=== PATIENT | male | born 1940 | race Caucasian/White ===

== ENCOUNTER 2018-07-09 13:33 | Outpatient (REF) | payer BC, SELFPAY ==
[2018-07-09 19:35] LABS: HCT 43.2 % (40.0-50.0); HGB 14.5 g/dL (13.5-17.5); Mean Corp. HGB Concentration 33.6 g/dL (32.0-36.0); Mean Corpuscular Hemoglobin 31.5 pg (27.0-33.0); Mean Corpuscular Volume 93.9 fL (80-95); Mean Platelet Volume 9.9 fL (8.0-11.0); Platelet Count 204 x1000/uL (130-400); White Blood Cell Count 5.36 k/cumm (4.4-10.8)
[2018-07-09 19:52] LABS: ALT 25 U/L (12-78); AST 29 U/L (15-37); Albumin 3.9 g/dL (3.4-5.0); Alkaline Phosphatase 115 U/L (46-116); Bilirubin, Total 0.5 mg/dL (0.2-1.0); Total Protein 7.3 g/dL (6.4-8.2)
[2018-07-09 20:02] LABS: Bilirubin, Direct 0.14 mg/dL (0.00-0.20)
== END 2018-07-09 13:53 ==
LOC: NCHCN 13:33
PROVIDERS: PCP Family Medicine; Visit Provider Family Medicine
DX: R10.11 Right upper quadrant pain (principal)
CPT/HCPCS: 80076; 82172; 82247; 82977; 83010; 83883; 84460; 85027

== ENCOUNTER 2019-04-16 12:46 | Outpatient (CLI) | payer BC, SELFPAY ==
--- NOTE | 2019-04-16 11:15 | DI.RAD_ITS ---
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 COMPARISON: No exams were available for comparison FINDINGS: Three views were obtained. There are prominent endplate hypertrophic changes noted throughout the th oracic spine. There is mild wedging of the vertebral bodies anteriorly at multiple levels most promi nent at what appears to be T11. There is mild thoracic kyphosis. No focal acute compression fractur e seen. No gross erosive or destructive lesion seen. IMPRESSION: Mild thoracic kyphosis with marked degenerative endplate changes and mild anterior wedging of vertebr al bodies throughout the thoracic region. No acute fracture seen.
== END 2019-04-16 13:06 ==
PROVIDERS: PCP Family Medicine; Visit Provider Family Medicine
DX: M40.204 Unspecified kyphosis, thoracic region (principal); M47.814 Spondylosis without myelopathy or radiculopathy, thoracic region
CPT/HCPCS: 72072

== ENCOUNTER 2019-05-27 00:58 | Outpatient (CLI) | payer BC, SELFPAY ==
--- NOTE | 2019-05-27 17:16 | DI.DEXA_ITS ---
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 Findings for left hip scanning are T-score - 2.2 with left femoral neck T-score -2.5. Findings for lumbar spine scanning are T-score of -3.1. Fi ndings for left forearm scanning are T-score -2.8. 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 There appear to be anterior compr ession fractures of T12 and L1 vertebral bodies on lateral vertebral scanogram.
== END 2019-05-27 01:18 ==
PROVIDERS: PCP Family Medicine; Visit Provider Family Medicine
DX: M81.0 Age-related osteoporosis without current pathological fracture (principal); M48.55XD Collapsed vertebra, not elsewhere classified, thoracolumbar region, subsequent encounter for fracture with routine healing; M40.204 Unspecified kyphosis, thoracic region
CPT/HCPCS: 77080

== ENCOUNTER 2019-06-02 12:16 | Outpatient (REF) | payer BC, SELFPAY ==
[2019-06-02 17:57] LABS: HCT 42.3 % (40.0-50.0); HGB 13.9 g/dL (13.5-17.5); Mean Corp. HGB Concentration 32.9 g/dL (32.0-36.0); Mean Corpuscular Hemoglobin 31.1 pg (27.0-33.0); Mean Corpuscular Volume 94.6 fL (80-95); Mean Platelet Volume 9.7 fL (8.0-11.0); Platelet Count 218 x1000/uL (130-400); RBC 4.47 m/cumm (4.50-6.00); RBC Distribution Width 13.3 % (11.8-14.1); White Blood Cell Count 4.71 k/cumm (4.4-10.8)
[2019-06-02 19:52] LABS: ALT 23 U/L (16-63); AST 27 U/L (15-37); Albumin 3.8 g/dL (3.4-5.0); Alkaline Phosphatase 95 U/L (46-116); Anion Gap 7.2 mmol/L (3-11); BUN 16 mg/dL (7-18); Bilirubin, Total 0.3 mg/dL (0.2-1.0); CO2 28.8 mmol/L (21.0-32.0); CREATININE 0.72 mg/dL (0.70-1.30); Calcium 8.5 mg/dL (8.5-10.1); Chloride 105 mmol/L (98-107); Glucose 105 mg/dL (74-106); Sodium 141 mmol/L (136-145); TSH (W/Ref FT4) 1.77 uIU/mL (0.36-3.74)
[2019-06-04 07:03] LABS: Vitamin D 25 Total 40.6 ng/ml (30-100)
[2019-06-05 11:54] LABS: Parathyroid Hormone,Intact 77 pg/mL (19-88)
== END 2019-06-02 12:36 ==
LOC: NCHCN 12:16
PROVIDERS: PCP Family Medicine; Visit Provider Nurse Practitioner Family
DX: M81.0 Age-related osteoporosis without current pathological fracture (principal)
CPT/HCPCS: 80053; 82306; 85027; 83970; 84443

== ENCOUNTER 2020-02-24 04:19 | Outpatient (CLI) | payer MEDICARE, SELFPAY ==
[2020-03-09 09:52] LABS: Misc Referral (MAYO) See Comments
== END 2020-02-24 04:39 ==
PROVIDERS: PCP Family Medicine; Visit Provider Dermatology
DX: L12.0 Bullous pemphigoid (principal)
CPT/HCPCS: 36415; 83516

== ENCOUNTER → 2020-03-01 10:59 | Outpatient (BNVA) | payer MEDICARE, SELFPAY | PROVIDERS: PCP Family Medicine; Referring Provider Family Medicine; Visit Provider Surgery | DX: K62.6 Ulcer of anus and rectum (principal); R35.0 Frequency of micturition | CPT/HCPCS: 99203; 99214 ==

== ENCOUNTER 2020-03-16 07:10 | Day surgery (SDC) | payer MEDICARE, SELFPAY ==
[2020-03-16 07:15] VITALS: BP 128/69; PULSE 54; RESP 18; TEMP 36.7; O2SAT 95
[2020-03-16] MEDS: Lactated Ringers 1,000 ML 80 ML IV (08:05)
--- NOTE | 2020-03-16 08:40 | BOWEL_PTH ---
PATIENT: Aj Chamberlain LOC: [facility] U#:[id number] AGE/SX: 79/M ROOM: RE03/16/[address]: Marcelina Yeager : 1940 BED: DIS: 03/16/2020 SPEC #: [id number] RECD: 03/16/20 12:31 STATUS: PEYMAN HERNANDEZ #: [id number] HAL: 03/16/20 08:[address]: Marcelina Yeager DEPT: Surgical Specimen RECD BY: Dia Gutierrez ENTERED: 03/16/20 12:38 SP TYPE: Bowel OTHR DR: Jenny York Tissues: 1 - BIOPSY BOWEL 2 - BIOPSY BOWEL 3 - BIOPSY BOWEL 4 - BIOPSY BOWEL 5 - BIOPSY BOWEL 6 - BIOPSY BOWEL 7 - BIOPSY BOWEL 8 - BIOPSY BOWEL 9 - BIOPSY BOWEL 10 - BIOPSY BOWEL 11 - BIOPSY BOWEL 12 - BIOPSY BOWEL 13 - BIOPSY BOWEL Procedures: GROSS AND MICRO LEVEL 4 Comments: [id number]
--- NOTE | 2020-03-16 09:00 | COLE_ITS ---
Colonoscopy Report Date of procedure: 03/16/20 Pre-op diagnosis general: anal ulceration Post-op diagnosis procedure note: other (polyps ) Surgeon: Marcelina Yeager Anesthesia proc note operative: GETA Estimated blood loss (mL): 1 Pathology: other Complications: None Disposition: same day Prep: Miralax/Dulcolax Retraction Time: 20 mins Procedure Description: After informed consent was obtained the patient was taken to the procedure room and placed in a left decubitous position. Monitors were applied and a time out was done. The patients name, date of , procedure, allergies to medications and metal in their body was reviewed. The patient was then sedated. Once sedated and comfortable a rectal exam was done. External exam shows severe anal excoriation. It has a whitish plaque on it with surrounding edema erythema and maceration. This is been previously biopsied at [facility] [place]. Mucosa appears pink and normal. Cecum was achieved at 100 cm. Good prep was noted. The TI was intubated and biopsies taken. He has 2 small polyps. These are each less than 5 mm in size. These were both removed with cold biopsy forceps. 1 is in the cecum. 1 is at 80 cm. Biopsies are taken every 10 cm starting at the cecum. And then all the way from 90, 80, 70, 60, 50, 40, 30, and the rectum. All specimens are retrieved and no bleeding is noted. Internal exam revealed a normal sphincter tone and no palpable masses. The prostate nl. The scope was then introduced and retrofelexed. no internal hemorrhoids were identified. The scope was then advanced to the cecum w/out difficulty. The TI and appendiceal orifice were identified. The prep was good. The scope was then slowly retracted over 20 minutes back into the rectum. The scope was removed and the patient was woken up and taken back to Same day surgery in stable condition. The patient tolerated the procedure well and there were no immediate complications. Follow up: The patient should follow up in office. He does not need to have a repeat unless he develops changes in bowel habits or other new gastrointestinal complaints.
--- NOTE | 2020-03-16 09:04 | W.PM.DSUDISC ---
Discharge Plan Disposition Patient Disposition: HOME Condition: Good Discharge Details Reason For Visit: colon scope Attending Provider: Marcelina Yeager Primary Care Provider: Jenny York Home Meds and New Rx's Prescriptions: New silver sulfadiazine [Silvadene] 1 % cream 1 applic topical QID PRN PRNQty: 50 RF: 5 Continued fluticasone propionate [Flonase Allergy Relief] 50 mcg/actuation spray,suspension 2 spray VENKATESH DAILY RF: 0 nystatin 100,000 unit/gram powder 1 applic TP BID RF: 0 calcium carbonate [Calcium 500] 500 mg calcium (1,250 mg) tablet 500 mg PO DAILY RF: 0 fluconazole 150 mg tablet 150 mg PO DAILY RF: 0 clotrimazole-betamethasone 1-0.05 % cream 1 applic topical BID RF: 0 Prolia 60 mg/mL syringe 60 mg subcut [id number] RF: 0 prednisone 20 mg tablet See Rx Instructions .ROUTE .COMPLEX RF: 0 Discontinued bisacodyl [Dulcolax (bisacodyl)] 5 mg tablet,delayed release (DR/EC) 5 mg PO ONCE Qty: 4 RF: 0 polyethylene glycol 3350 17 gram powder in packet 255 g PO DAILY Qty: 15 RF: 0 Discharge Instructions Additional Instructions: Findings:x2 small polyps otherwise nl. No ASA/NSAID's for 2 wks silvadene cream prn comfort cont to use clotrimazole-betamethasone crem as previously prescribed May have some bleeding w/ first BM. Follow up: Toy in 2-3 wks Please call if you develop: fevers >101.5 Nausea or Vomiting Abdominal pain that is not transient DAY SURGERY UNIT POST COLONOSCOPY INSTRUCTIONS 1. Because there will be medication in your system for the next 24 hours, you may feel a little sleepy. Your coordination will be affected. Therefore: a. Do not drive or operate dangerous equipment for 24 hours. b. Do not drink alcohol beverages for 24 hours (not even beer). c. Plan to go home and rest for the day. 2. Generally there are no restrictions on your activity after a day or so has gone by, but you may feel a bit fatigued for a few days. 3 After you arrive home you may have a light meal and return to a normal diet as you can tolerate it without feeling sick to your stomach. 4. After surgery, you may feel pain or discomfort. This should be only transient, but if it persists please contact your doctor. 5. If there are any questions regarding the findings of your procedure, please feel free to contact your doctor. 6. If you are unable to contact your doctor with a problem, contact the hospital at [phone]. 7. Continue all your regular medications unless directed otherwise. I understand the above instructions and have no questions. Signature of Patient or Responsible Adult Escort Date/Time Name of Responsible Adult Escort Signature of Nurse Date/Time Activity:: He had no lifting over 20 pounds or strenuous activity x72 hours Diet:: small light meals x 24 hrs Discharge Orders Discharge Orders: Discharge Order (Routine); Ordered 03/16/20 Ordered By: Marcelina Yeager DS: Diagnosis Discharge Diagnosis (1) Anal ulcer: Status: Acute (2) Bullous pemphigoid: Status: Acute
[2020-03-16 09:30] VITALS: BP 126/77; PULSE 52; RESP 18; TEMP 36; O2SAT 99
== END 2020-03-16 10:10 | disposition home or self-care (01) ==
PROVIDERS: PCP Family Medicine; Visit Provider Surgery
PROC: 0DJD8ZZ Inspection of Lower Intestinal Tract, Via Natural or Artificial Opening Endoscopic (ICD-10-PCS; CPT 45378; principal; 2020-03-16 08:30)
DX: K62.6 Ulcer of anus and rectum (principal); K63.5 Polyp of colon; L12.0 Bullous pemphigoid
CPT/HCPCS: 45380; 88305; J2001

== ENCOUNTER 2020-03-31 02:15 | Outpatient (CLI) | payer MEDICARE, SELFPAY ==
--- NOTE | 2020-03-31 | DI.MRI_ITS ---
EXAM: MR BRAIN WO CLINICAL HISTORY: MILD MEMORY DISTURBANCE,R41.3,GAIT ABNL,R26.9,VISION CHANGES,H53.9. TECHNIQUE: Multiplanar multisequence MRI of the brain was performed. CONTRAST MATERIAL: Noncontrast COMPARISON: No exams were available for comparison FINDINGS: VENTRICLES AND EXTRA AXIAL SPACES: Normal in size and morphology for the patient's age. Gmmy-wq-hawk rate diffuse atrophy. HEMORRHAGE: None. CEREBRAL PARENCHYMA: Jqbc-yt-egcidtoz white matter changes consistent with microvascular disease. No focus of restricted diffusion to suggest acute infarct. No space-occupying lesion identified. MIDLINE SHIFT: None. BRAINSTEM/CEREBELLUM: Normal. VISUALIZED PARANASAL SINUSES/MASTOIDS: Mild ethmoid sinus mucosal thickening. The mastoid air cells are clear.. OTHER FINDINGS: The orbits and pituitary are unremarkable. The vascular flow voids are intact. IMPRESSION: Atrophy and white matter changes of small vessel disease. No acute abnormality. DATA REPOSITORY:
== END 2020-03-31 02:35 ==
PROVIDERS: PCP Family Medicine; Visit Provider Family Medicine
DX: R41.3 Other amnesia (principal); R26.89 Other abnormalities of gait and mobility; G31.89 Other specified degenerative diseases of nervous system
CPT/HCPCS: 70551

== ENCOUNTER → 2020-04-01 11:27 | Outpatient (BNVA) | payer MEDICARE, SELFPAY | PROVIDERS: PCP Family Medicine; Referring Provider Family Medicine; Visit Provider Surgery | DX: L12.0 Bullous pemphigoid (principal); K63.5 Polyp of colon; K62.6 Ulcer of anus and rectum | CPT/HCPCS: 99213 ==

== ENCOUNTER → 2020-05-12 08:57 | Outpatient (BNVA) | payer MEDICARE, SELFPAY | PROVIDERS: PCP Family Medicine; Referring Provider Family Medicine; Visit Provider Nurse Practitioner Adult Health | DX: R41.89 Other symptoms and signs involving cognitive functions and awareness (principal); R26.89 Other abnormalities of gait and mobility | CPT/HCPCS: 99204; 99215 ==

== ENCOUNTER 2020-05-13 19:20 | Outpatient (REF) | payer MEDICARE, SELFPAY ==
[2020-05-13 18:57] LABS: Vitamin B12 426 pg/mL (193-986)
== END 2020-05-13 19:40 ==
LOC: NCHCN 19:20
PROVIDERS: PCP Family Medicine; Visit Provider Family Medicine
DX: L12.0 Bullous pemphigoid (principal)
CPT/HCPCS: 82607

== ENCOUNTER 2020-05-26 22:42 | Outpatient (REF) | payer MEDICARE, SELFPAY ==
[2020-05-30 10:22] LABS: Hepatitis C Ab w Rflx HCV PCR Negative (Negative)
== END 2020-05-26 23:02 ==
LOC: NCHCN 22:42
PROVIDERS: PCP Family Medicine; Visit Provider Family Medicine
DX: Z11.59 Encounter for screening for other viral diseases (principal)
CPT/HCPCS: 86803

== ENCOUNTER → 2020-06-07 10:34 | Outpatient (BNVA) | payer MEDICARE, SELFPAY | PROVIDERS: PCP Family Medicine; Referring Provider Family Medicine; Visit Provider Nurse Practitioner Adult Health | DX: R41.89 Other symptoms and signs involving cognitive functions and awareness (principal); R26.9 Unspecified abnormalities of gait and mobility | CPT/HCPCS: 99354 ==

== ENCOUNTER → 2020-08-11 14:50 | Outpatient (BNVA) | payer MEDICARE, SELFPAY | PROVIDERS: PCP Family Medicine; Referring Provider Family Medicine; Visit Provider Psychiatry & Neurology Neurology | DX: F44.4 Conversion disorder with motor symptom or deficit (principal); R20.2 Paresthesia of skin; G62.9 Polyneuropathy, unspecified; M40.299 Other kyphosis, site unspecified | CPT/HCPCS: 99215 ==

== ENCOUNTER 2020-08-15 04:20 | Outpatient (CLI) | payer MEDICARE, SELFPAY ==
[2020-08-15 18:36] LABS: HCT 39.6 % (40.0-50.0); HGB 13.1 g/dL (13.5-17.5); MCH 31.3 pg (27.0-33.0); MCHC 33.1 % (32.0-36.0); MCV 94.5 fL (80-95); MPV 9.2 fL (8.0-11.0); Platelet Count 229 10^3/uL (130-400); RBC 4.19 10^6/uL (4.36-5.78); RDW 12.2 % (11.8-14.1); RDW-SD 42.5 fL; WBC 6.02 10^3/uL (4.4-10.8)
[2020-08-15 18:59] LABS: ALT 23 U/L (16-63); AST 25 U/L (15-37); Albumin 3.6 g/dL (3.4-5.0); Alkaline Phosphatase 66 U/L (46-116); Anion Gap 8.7 mmol/L (3-11); BUN 18 mg/dL (7-18); Bilirubin, Total 0.3 mg/dL (0.2-1.0); CO2 25.3 mmol/L (21.0-32.0); CREATININE 0.7 mg/dL (0.70-1.30); Calcium 8.3 mg/dL (8.5-10.1); Chloride 106 mmol/L (98-107); Glucose 117 mg/dL (74-106); Sodium 140 mmol/L (136-145); TSH (W/Ref FT4) 1.83 uIU/mL (0.36-3.74); Total Protein 6.9 g/dL (6.4-8.2)
[2020-08-17 09:48] LABS: Ferritin 118 ng/mL (26-388)
[2020-08-18 15:11] LABS: BP 180 <2 RU/mL (<20); BP 230 <2 RU/mL (<20)
== END 2020-08-15 04:21 | disposition home or self-care (01) ==
LOC: LBO 04:20
PROVIDERS: PCP Family Medicine; Visit Provider Dermatology
DX: R53.83 Other fatigue (principal); L12.0 Bullous pemphigoid
CPT/HCPCS: 36415; 80053; 83516; 85027; 82728; 84443

== ENCOUNTER → 2020-09-06 08:41 | Outpatient (BNVA) | payer MEDICARE, SELFPAY | PROVIDERS: PCP Family Medicine; Visit Provider Nurse Practitioner Adult Health | DX: R41.89 Other symptoms and signs involving cognitive functions and awareness (principal); F44.4 Conversion disorder with motor symptom or deficit; R20.2 Paresthesia of skin | CPT/HCPCS: 99214; 99215 ==

== ENCOUNTER → 2020-09-27 14:08 | Outpatient (BNVA) | payer MEDICARE, SELFPAY | PROVIDERS: PCP Family Medicine; Referring Provider Family Medicine; Visit Provider Nurse Practitioner Adult Health | DX: G56.03 Carpal tunnel syndrome, bilateral upper limbs (principal); G56.23 Lesion of ulnar nerve, bilateral upper limbs | CPT/HCPCS: 95912 ==

== ENCOUNTER 2020-11-08 02:55 | Outpatient (CLI) | payer MEDICARE, SELFPAY ==
[2020-11-08 10:19] LABS: Hemoglobin A1C 5.5 % (<5.7)
[2020-11-08 10:41] LABS: Vitamin B12 735 pg/mL (193-986)
== END 2020-11-08 02:56 | disposition home or self-care (01) ==
LOC: LBO 02:55
PROVIDERS: Nurse Practitioner Adult Health; PCP Family Medicine; Visit Provider Psychiatry & Neurology Neurology
DX: R73.09 Other abnormal glucose (principal); R41.3 Other amnesia; G62.9 Polyneuropathy, unspecified; G31.84 Mild cognitive impairment of uncertain or unknown etiology
CPT/HCPCS: 36415; 82607; 83036

== ENCOUNTER → 2020-11-14 13:59 | Outpatient (BNVA) | payer MEDICARE, SELFPAY | PROVIDERS: PCP Family Medicine; Referring Provider Family Medicine; Visit Provider Nurse Practitioner Adult Health | DX: G56.03 Carpal tunnel syndrome, bilateral upper limbs (principal); G56.23 Lesion of ulnar nerve, bilateral upper limbs; F44.4 Conversion disorder with motor symptom or deficit; R41.89 Other symptoms and signs involving cognitive functions and awareness | CPT/HCPCS: 99214; 99215; G2212 ==

== ENCOUNTER → 2021-02-27 09:28 | Outpatient (BNVA) | payer MEDICARE, SELFPAY | PROVIDERS: PCP Family Medicine; Referring Provider Family Medicine; Visit Provider Nurse Practitioner Adult Health | DX: F44.4 Conversion disorder with motor symptom or deficit (principal); G31.84 Mild cognitive impairment of uncertain or unknown etiology | CPT/HCPCS: 99213; 99215; G2212 ==

== ENCOUNTER 2021-03-01 12:10 | Outpatient (REF) | payer MEDICARE, SELFPAY ==
[2021-03-01 13:55] LABS: HCT 41.1 % (40.0-50.0); HGB 13.2 g/dL (13.5-17.5); MCH 30.3 pg (27.0-33.0); MCHC 32.1 % (32.0-36.0); MCV 94.3 fL (80-95); MPV 8.9 fL (8.0-11.0); Platelet Count 207 10^3/uL (130-400); RBC 4.36 10^6/uL (4.36-5.78); RDW 13.5 % (11.8-14.1); RDW-SD 46.5 fL; WBC 5.78 10^3/uL (4.4-10.8)
[2021-03-01 14:13] LABS: BUN 18 mg/dL (7-18); CREATININE 0.9 mg/dL (0.70-1.30); Calcium 8.6 mg/dL (8.5-10.1); Chloride 107 mmol/L (98-107); Glucose 107 mg/dL (74-106); Potassium 4.1 mmol/L (3.5-5.1); Sodium 142 mmol/L (136-145); TSH (W/Ref FT4) 1.52 uIU/mL (0.36-3.74)
[2021-03-02 11:30] LABS: Parathyroid Hormone,Intact 76 pg/mL (19-88)
== END 2021-03-01 12:11 | disposition home or self-care (01) ==
LOC: NCHCN 12:10
PROVIDERS: PCP Family Medicine; Visit Provider Family Medicine
DX: E83.51 Hypocalcemia (principal); D64.9 Anemia, unspecified; R00.2 Palpitations
CPT/HCPCS: 80048; 85027; 83970; 84443

== ENCOUNTER 2021-03-02 09:29 | Outpatient (CLI) | payer MEDICARE, SELFPAY ==
--- NOTE | 2021-03-28 11:08 | ZIOP_ITS ---
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 Sinus rate ranged from 46-96. Atrial flutter/fibrillation was present 44% of the time. Longest episode of atrial fibrillation lasted 3 days and 3 hours Average heart rate while in atrial fibrillation was 135 bpm. Minimum was 86, maximum 186 Average heart rate overall was 98. There was no high-grade AV block, no pauses greater than 3 seconds Patient symptoms of shortness of breath, tired or fatigued on one occasion corresponded to an isolated ventricular ectopic beat in the setting of sinus rhythm at 64.. Another occasion corresponded to atrial fibrillation rate 122.
== END 2021-03-02 09:30 | disposition home or self-care (01) ==
PROVIDERS: PCP Family Medicine; Visit Provider Family Medicine
DX: R00.2 Palpitations (principal)
CPT/HCPCS: 93246

== ENCOUNTER 2021-03-14 14:14 | Outpatient (CLI) | payer MEDICARE, SELFPAY ==
[2021-03-14 16:22] LABS: Anion Gap 5.4 mmol/L (3-11); BUN 30 mg/dL (7-18); CO2 30.6 mmol/L (21.0-32.0); Calcium 8.8 mg/dL (8.5-10.1); Chloride 108 mmol/L (98-107); Glucose 105 mg/dL (74-106); Potassium 4.4 mmol/L (3.5-5.1); Sodium 144 mmol/L (136-145)
== END 2021-03-14 14:15 | disposition home or self-care (01) ==
LOC: LBO 14:16
PROVIDERS: PCP Family Medicine; Visit Provider Internal Medicine Rheumatology
DX: M81.0 Age-related osteoporosis without current pathological fracture (principal)
CPT/HCPCS: 36415; 80048

== ENCOUNTER 2021-03-28 11:08 | Outpatient (CLI) | payer MEDICARE, SELFPAY | END 2021-03-28 11:09 | LOC: CARDO 03-29 15:51 | PROVIDERS: PCP Family Medicine; Referring Provider Family Medicine; Visit Provider Internal Medicine Cardiovascular Disease | DX: R00.2 Palpitations (principal); I48.91 Unspecified atrial fibrillation; I48.92 Unspecified atrial flutter; I49.3 Ventricular premature depolarization | CPT/HCPCS: 93248 ==

== ENCOUNTER 2021-03-29 01:13 | Outpatient (CLI) | payer MEDICARE, SELFPAY ==
--- NOTE | 2021-03-29 07:37 | DI.US_ITS ---
APPROVED REPORT EXAM: Comprehensive 2D, Doppler, and color-flow Echocardiogram Patient Location: Out-Patient [facility] Supervisor: Grace Gregory RDCS (AE) Indications: Atrial Fibrillation Other Information Study Quality: Adequate Conclusion Normal left ventricular wall thickness and chamber size. Estimated ejection fraction is 55 to 60%. There are no segmental wall motion abnormalities Normal right ventricular size and systolic function Both atria are mildly dilated The aortic valve is trileaflet with trace regurgitation Mildly thickened mitral leaflets with mild regurgitation Normal tricuspid valve with trace regurgitation. Normal estimated right ventricular systolic pressur e, 23 mmHg Dilated ascending aorta measuring 4 cm Wall motion Left Ventricle The left ventricle is normal size. The left ventricular systolic function is normal. The left ventric ular ejection fraction is within the normal range. There is normal left ventricular wall thickness. T here is normal LV segmental wall motion. There is no ventricular septal defect visualized. LVEF is 58 %. Right Ventricle The right ventricle is normal size. The right ventricular systolic function is normal. The RVSP is 23 .2 mmHg. Atria Left atrium is mildly dilated. Right atrium is mildly dilated. The interatrial septum is intact with no evidence for an atrial septal defect. Aortic Valve The aortic valve is normal in structure. There is no aortic valvular stenosis. Trace aortic regurgita tion. Mitral Valve Mitral valve leaflets are mildly thickened. No evidence of mitral valve stenosis. Mild mitral regurgi tation. Tricuspid Valve The tricuspid valve is normal in structure. There is no tricuspid valve stenosis. Trace tricuspid reg urgitation. Pulmonic Valve The pulmonary valve is normal in structure. There is no pulmonic valvular stenosis. There is no pulmo elaine valvular regurgitation. Great Vessels The aortic root is normal in size. The ascending aorta is moderately dilated.4.0 cm Aortic arch is no rmal in caliber. IVC is normal in size and collapses >50% with inspiration. IVC is normal in size and collapses >50% with inspiration. Pericardium There is no pericardial effusion. 2D Dimensions IVSD d PLAX 1.04 cm M: 0.6-1.2 LV Vol A2C d MOD 149.0 mL LVPW d PLAX 1.04 cm M: 0.6 - 1.2 LV Vol A4C d MOD 154.0 mL LVID d PLAX 4.93 cm M: 4.2 - 5.8 LA vol/ BSA A2C s A-L 49.9 mL/m2 LVDs 3.40 cm M: 2.5 - 4.0 LA vol/ BSA A4C s A-L 28.8 mL/m2 Ao Root d 3.67 cm M: 3.1 - 3.7 LA Vol/ BSA Biplane s A-L 39.6 mL/m2 RA Area A4C 19.56 cm2 LA Area A4C s MOD 19.80 cm2 RA Vol/ BSA A4C s A-L 30.9 mL/m2 LA Area A2C s MOD 27.21 cm2 Ao Asc Diam d 4.08 cm M: 2.6 - 3.4 LV EF A4C MOD 59.2 % LV EF Teichholz 58.1 % LV EF A2C MOD 58.9 % LVEF (Gibson's) 57.91 % M: 52 - 72 LV EF Biplane MOD 57.9 % LV Volume 115.13 mL M: 62 - 150 SV 88.80 mL LV Volume Index 57.85 mL/m2 M: 34 - 74 SV Index 44.55 mL/m2 LV Vol Biplane MOD 153.3 mL FS 30.70 % M-Mode TAPSE 2.92 cm (M/F) >1.7 LV Diastology MV E' medial 0.073 (>0.07 m/s) E/A Ratio 0.9 LV E/e MED 10.20 (<14) MV E Vmax 0.75 (0.4-1.3 m/s) MV E' lateral 0.088 (>0.1 m/s) MV A Vmax 0.80 (0.4-1.3 m/s) LV E/e LAT 8.50 (<14) MV E/A Ratio 0.92 MV E/E' medial 10.22 MV E/E' lateral 8.52 Aortic Valve LVOT Area 3.90 cm2 AoV Area Vmax 2.74 cm2 LVOT Vmax 0.89 m/s AoV Area/ BSA (Vmax) 1.38 cm2/m2 LVOT Mean Ba. 0.70 m/s AYDEE Mean Ba. 2.50 cm2 LVOT Peak Grad 3.2 mmHg AYDEE Mean Ba. Index 1.25 cm2/m2 LVOT Mean Grad 2.1 mmHg AR DT 2151 msec LVOT VTI 0.217 m AR PHT 624 msec LVOT Diam s 2.20 cm AoV Vmax 1.27 m/s Velocity Ratio 0.70 AoV Mean Ba. 1.09 m/s AoV Peak Grad 6.5 mmHg LVOT SV 84.63 mL AoV Mean Grad 4.8 mmHg AoV VTI 0.339 m AoV Area VTI 2.50 cm2 AoV Area/ BSA (VTI) 1.25 cm/m2 Mitral Valve MV DT 258 (160-240 msec) MR Vmax 5.23 m/s MV PHT 75 msec MR VTI 1.712 m MV Area PHT 2.95 cm2 MR Peak Grad 109.5 mmHg MV VTI 0.352 m MR Mean Grad 80.2 mmHg MV VTI Annulus 0.372 m MR PISA Radius 0.44 cm MV Area VTI 2.55 (4.0-6.0 cm2) MR EROA 0.08 cm2 MR Aliasing Velocity 0.35 m/s MR PISA 1.23 cm2 Pulmonary Valve PV Vmax 0.91 (0.5-1.5 m/s) RVOT Peak Gr. 1.74 mmHg PV Peak Grad 3.3 mmHg RVOT Mean Gr. 0.85 mmHg PV Mean Grad 1.7 mmHg RVOT VTI 0.136 m PV VTI 0.199 m RVOT Vmax 0.66 m/s Tricuspid Valve TR Peak Grad 20.2 mmHg TR Vmax 2.25 m/s RA Pressure 3.00 mmHg RVSP (TR) 23.2 mmHg
== END 2021-03-29 01:33 ==
PROVIDERS: PCP Family Medicine; Visit Provider Family Medicine
DX: I48.0 Paroxysmal atrial fibrillation (principal); I34.0 Nonrheumatic mitral (valve) insufficiency; I77.810 Thoracic aortic ectasia
CPT/HCPCS: 93306

== ENCOUNTER 2021-04-06 12:59 | Outpatient (CLI) | payer MEDICARE, SELFPAY ==
--- NOTE | 2021-04-06 13:00 | RT.EKG_ITS ---
APPROVED REPORT Exam: Resting ECG Reason for Exam: afib Patient Location: O HR:61 bpm ECG Measurements Heart Rate 61 AXIS NC 155 P 42 QRSd 98 QRS 17 QT 394 T 59 QTc 397 Conclusion Sinus rhythm...normal P axis, V-rate 50- 99 Multiform ventricular premature complexes...short R-R, variable morphology
== END 2021-04-06 13:00 | disposition home or self-care (01) ==
LOC: DI.CARD 13:01
PROVIDERS: PCP Family Medicine; Referring Provider Family Medicine; Visit Provider Internal Medicine Cardiovascular Disease
DX: I48.91 Unspecified atrial fibrillation (principal)
CPT/HCPCS: 93010

== ENCOUNTER → 2021-04-06 12:59 | Outpatient (BNVA) | payer MEDICARE, SELFPAY | PROVIDERS: PCP Family Medicine; Referring Provider Family Medicine; Visit Provider Internal Medicine Cardiovascular Disease | DX: I48.0 Paroxysmal atrial fibrillation (principal); Z79.01 Long term (current) use of anticoagulants | CPT/HCPCS: 93005; 99203; 99214 ==

== ENCOUNTER 2021-04-06 17:16 | Emergency (ER) | payer MEDICARE, SELFPAY ==
--- NOTE | 2021-04-06 17:15 | DI.CT_ITS ---
Exam(s) CT THORACIC SPINE WO EXAM: CT THORACIC SPINE WO CLINICAL HISTORY: pain TECHNIQUE: COMPARISON: No exams were available for comparison FINDINGS: CT examination of the thoracic spine was performed according to the usual protocol. There are degene rative changes consistent with the patient's age. Multi level minimal endplate compressions which ap pear chronic are noted. No evidence of acute fracture or dislocation. No gross thoracic disc hernia tion by CT criteria. No paraspinal mass or fluid collection. Visualized lungs are grossly clear. IMPRESSION: No evidence of acute thoracic spine injury. Her RADIATION DOSE DELIVERED: Total DLP CTDIvol RADIATION OPTIMIZATION: All CT scans at this facility use at least one of these dose optimization te chniques: automated exposure control; mA and/or kV adjustment per patient size (includes targeted exa ms where dose is matched to clinical indication); or iterative reconstruction.
--- NOTE | 2021-04-06 17:15 | DI.CT_ITS ---
Exam(s) CT HEAD CERVICAL SPINE WO EXAM: CT HEAD CERVICAL SPINE WO COMPARISON: No exams were available for comparison FINDINGS: CT examination of the cervical spine was performed without contrast administration. There is a nondisplaced fracture through the posterior elements of C6 vertebra extending through the lamina bilaterally and extending into the base of the spinous process. This has appearance consisten t with a stable injury. Intervertebral disc spaces are well maintained. Tracheolaryngeal structures appear intact. No cervical mass or adenopathy. Noncontrast cranial CT was performed. There is moderate generalized cerebral atrophy. No evidence of acute intracranial hemorrhage, mass effect, or midline shift. No calvarial fracture. The orbital and temporal bone structures appear intact. There is mild mucoperiosteal thickening of maxillary and ethmoid sinuses. Otherwise the visualized m astoid air cells and paranasal sinuses appear clear. IMPRESSION: Nondisplaced fracture of the lamina of C6 as described above. This has appearance consistent with st able injury and no additional fracture is seen. No evidence of acute intracranial injury. RADIATION DOSE DELIVERED: Total DLP Total DLP CTDIvol DATA REPOSITORY: All CT scans at this facility are submitted to the National Radiology Data Registry (NRDR) Dose Index Registry (DIR) with the [employer] ([employer]). RADIATION OPTIMIZATION: All CT scans at this facility use at least one of these dose optimization te chniques: automated exposure control; mA and/or kV adjustment per patient size (includes targeted exa ms where dose is matched to clinical indication); or iterative reconstruction.
[2021-04-06 17:18] VITALS: BP 140/75; PULSE 56; RESP 16; TEMP 36.3; O2SAT 99
--- NOTE | 2021-04-06 17:28 | W.ED.GENAD ---
Discharge Plan Disposition Patient Disposition: HOME Condition: Stable Discharge Details Clinical Impression: Fracture of C6 vertebra, closed, Blunt head trauma Primary Care Provider: Jenny York ED Provider: Jesse Chamberlain [place] Meds and New Rx's Prescriptions: Continued mecobalamin (vitamin B12) 1,000 mcg tablet,chewable 1,000 mcg PO DAILY RF: 0 nicotinamide 500 mg capsule PO TID RF: 0 tamsulosin [Flomax] 0.4 mg capsule 0.4 mg PO QHS Qty: 90 RF: 1 lutein 10 mg tablet 10 mg PO DAILY Qty: 90 RF: 0 doxycycline hyclate 100 mg capsule 100 mg PO BID Qty: 90 RF: 0 metoprolol succinate 25 mg tablet extended release 24 hr 50 mg PO DAILY RF: 0 fluticasone propionate [Allergy Relief (fluticasone)] 50 mcg/actuation spray,suspension 2 spray intranasal DAILY PRNRF: 0 Xarelto 20 mg tablet 20 mg PO DAILY RF: 0 Xarelto 20 mg tablet 20 mg PO DAILY RF: 0 Prolia 60 mg/mL syringe 60 mg subcut [id number] RF: 0 calcium carbonate [Calcium 500] 500 mg calcium (1,250 mg) tablet 1,000 mg PO DAILY RF: 0 Curcumin 95 % powder miscellaneous DAILY RF: 0 clotrimazole-betamethasone 1-0.05 % cream 1 applic topical BID RF: 0 Discharge Instructions Instructions: Head Injury (ED), Cervical Fracture (ED) Additional Instructions: You must wear the collar at all times. You may use Tylenol for pain if needed. [facility] spine clinic will contact you with follow up appointment to occur in 2 - 3 weeks. Return to ED if any neurological changes, worse pain, other concerns. Medical Decision Making <Jefry Espinoza MD - Last Filed: 04/06/21 19:34> 80 yo male with hx of afib on rivaroxaban who comes in with ems after a fall. He was in his garden which is on a hill and was planting garden when he fell to the side and felt a pop in his lower neck/upper midline back. Denies loc or preceding symptoms such as lightheadedness, chest pain or dyspnea. He has no headache, no chest or abdominal pain or pain in the extremities. He is caox4 in no distress. He has no chest or abdominal tenderness. No signs of trauma to the head, no focal motor or sensation deficits, CN II-XII intact. does have pain with palpation to the lower neck and upper midline back without palpable deformities. Suspect muscle strain but given his age will obtain ct cervical spine and thoracic spine and given he is on anticoagulation obtain ct head imaging shows c6 spinous process fx and bilateral lamina fracture, likely stable and remains neuro intact but will consult with spine at [facility]. pt signed out to oncoming provider pending spine consult. Differential Diagnosis Differential Diagnosis: muscle strain, fracture, dislocation Imaging Data Radiologic Study: Attestation: I personally reviewed and interpreted this imaging study as follows: Imaging: X-Ray Radiologist's impression: PROCEDURE INFORMATION: Exam: CT Thoracic Spine Without Contrast Exam date and time: 04/06/2021 5:28 PM Age: 80 years old Clinical indication: Other: Fall TECHNIQUE: Imaging protocol: Computed tomography images of the thoracic spine without contrast. COMPARISON: CR XR THORACIC SPINE COMPLETE 04/16/2019 11:13 AM FINDINGS: Vertebrae: No acute fracture. Normal alignment. Discs/Spinal canal/Neural foramina: Anterior ligamentous ossification and osteophytes noted. Interspinous ligament ossification noted at several levels. No significant disc protrusion. No severe spinal canal stenosis. No significant neural foraminal narrowing. Soft tissues: Unremarkable. IMPRESSION: Unremarkable thoracic spine. No evidence of thoracic spine fracture. Radiologic Study #2: Attestation: I personally reviewed and interpreted this imaging study as follows: Imaging: CT Scan Radiologist's impression: IMPRESSION: Nondisplaced fracture through the bilateral lamina and base of the spinous process of C6. The vertebral arch of C6 is intact, making this injury unlikely to be unstable. <Jesse Chamberlain MD - Last Filed: 04/06/21 23:55> Patient signed out to me pending discussion with ortho spine at [facility]. Received call back from ortho who had reviewed the scan. Agreed that fracture likely stable and could go home in [place] collar. However, they wanted upright AP and lateral films to assure normal alignment once patient in [place] collar. This was discussed with patient and his . Patient continues to be neurologically intact. Linwood collar place and patient able to stand without difficulty. X-ray obtained and read by [facility] as normal alignment. Patient instructed to wear [place] at all times. Ortho spine will contact patient with follow-up appointment to occur in 2 to 3 weeks. Patient encouraged to return to ED if any neurologic changes, worsening pain, or other concerns. HPI <Jefry Espinoza MD - Last Filed: 04/06/21 19:34> General Mode of arrival: EMS. Date/Time Provider Initiated Documentation: 04/06/21 17:18. Limitations to Documentation: no limitations. Information obtained by: patient. History of Present Illness 80 year old M presents to the emergency department with the chief complaint of neck pop feeling after fall, described as moderate, Patient started experiencing this hour(s) (1) and it has been constant. No relieving factors improve symptom(s), No exacerbating factors reported . Patient did receive the following treatments prior to arrival, none Related Data Home Medications Medication Instructions Recorded Confirmed denosumab 60 mg/mL subcutaneous 60 mg SUBCUT [id number] 02/26/20 04/06/21 syringe nicotinamide PO TID 05/12/20 03/02/21 mecobalamin (vitamin B12) 1,000 1,000 mcg PO DAILY 06/07/20 04/06/21 mcg chewable tablet calcium carbonate 500 mg calcium 1,000 mg PO DAILY tab 10/03/20 04/06/21 (1,250 mg) tablet clotrimazole-betamethasone 1 1 applic TOPICAL BID 10/03/20 04/06/21 %-0.05 % topical cream turmeric (bulk) 95 % powder pwd MISCELLANEOUS DAILY g 10/03/20 03/02/21 tamsulosin 0.4 mg capsule 0.4 mg PO QHS #90 cap 02/24/21 04/06/21 doxycycline hyclate 100 mg capsule 100 mg PO BID #90 cap 03/02/21 04/06/21 lutein 10 mg tablet 10 mg PO DAILY #90 tab 03/02/21 04/06/21 fluticasone propionate 50 2 spray INTRANASAL DAILY PRN 04/06/21 04/06/21 mcg/actuation nasal spray,suspension metoprolol succinate 25 mg 50 mg PO DAILY tab 04/06/21 04/06/21 tablet,extended release 24 hr rivaroxaban 20 mg tablet 20 mg PO DAILY 04/06/21 04/06/21 rivaroxaban 20 mg tablet 20 mg PO DAILY 04/06/21 04/06/21 Previous Rx's Medication Instructions Recorded tamsulosin 0.4 mg capsule 0.4 mg PO QHS #90 cap 02/24/21 doxycycline hyclate 100 mg capsule 100 mg PO BID #90 cap 03/02/21 lutein 10 mg tablet 10 mg PO DAILY #90 tab 03/02/21 Allergies Allergy/AdvReac Type Severity Reaction Status Date / Time cephalexin [Cephalexin] AdvReac Intermediate Diarrhea Verified 04/06/21 17:22 General Stated Complaint: Trauma LYN: 2 Review of Systems <Jefry Espinoza MD - Last Filed: 04/06/21 19:34> All systems reviewed & are unremarkable except as noted in HPI and below Constitutional Constitutional: Denies chills, Denies fever(s) and Denies weakness Cardiovascular Cardiovascular: Denies chest pain and Denies dyspnea Respiratory Respiratory: Denies cough and Denies dyspnea Gastrointestinal Gastrointestinal: Denies abdominal pain, Denies nausea and Denies vomiting Musculoskeletal Musculoskeletal: Denies joint swelling Neurologic Neurologic: Denies weakness PFSH <Jefry Espinoza MD - Last Filed: 04/06/21 19:34> Medical History (Updated 04/06/21 @ 21:36 by Jesse Chamberlain MD) Actinic keratosis Anemia Atrial fibrillation newly recognized February 2021 Bilateral carpal tunnel syndrome BPH associated with nocturia Bullous pemphigoid Candidal intertrigo Chronic anticoagulation apixaban as of February 2021 Chronic rhinitis Cognitive impairment Cubital tunnel syndrome, bilateral DNI (do not intubate) DNR (do not resuscitate) Erectile dysfunction Executive function deficit Gait abnormality Goals of care, counseling/discussion Health care proxy on file Shelia Chamberlain, his Hepatitis C Hypophonia Kyphosis Mild memory disturbance Nocturia Onychomycosis of toenail Osteoporosis Palliative care patient Paroxysmal atrial fibrillation POLST (Physician Orders for Life-Sustaining Treatment) Polyneuropathy Short-term memory loss 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 Son No problems noted. Sister No problems noted. 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 Pets and animals: Yes Pets and animals: cat(s) Do you think of yourself as: straight/heterosexual Current gender identity: male What is your relationship status?: How often do you talk on the phone with friends or family?: three or more times per week How often do you get together with friends or relatives?: twice per week How often do you attend congregation or christian services?: 4 or more times per year Do you belong to any clubs or organized social groups?: yes Panel score (0-1 are the most socially isolated patients): 4 What type of physical activity do you participate in: assisted ambulation and additional Details: gardening Duration: 30-45 minutes/day Frequency: 5-6 times per week Laurence/Nondenominational: Nguyen Special laurence needs: No Seatbelt use: always Working smoke detector in home: Yes Fire extinguisher in home: Yes Firearms in home: No Do you feel safe at home: Yes Do you feel safe in your relationship?: Yes Additional Social history: Chandu lives with his , Shelia, who is 19 years his marie. They have 2 sons, Donald and Jewel. Donald lives in [place] and Jewel lives in [place]. Chandu has always been physically active. 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 It is very difficult for him to walk on his own. Does much better with walker. Unclear cause of his cognitive decline. Brother also with dementia NOS. In his youth, Chandu worked extensively with DDT and other pesticides. 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 There he was exposed to pesticides, too. About to start work renovating their house so Chandu will have bedroom and bathroom on first floor. Exam <Jefry Espinoza MD - Last Filed: 04/06/21 19:34> Const General: no acute distress Orientation: alert [facility] Head: normal to inspection Ears: external ears normal General nose exam: external nose normal Mouth: moist mucous membranes Eyes General: appearance normal, both eyes and all related structures Neck Neck: no lymphadenopathy Chest Chest: no tenderness Resp Effort & Inspection: normal respiratory effort and able to speak in complete sentences Cardio Rate: regular rate GI Palpation: soft and nontender Skin General skin exam: no rashes or lesions noted Neuro General: patient alert and patient oriented x3 Extrem General: normal to inspection Psych Mental Status: mental status grossly normal Course <Jefry Espinoza MD - Last Filed: 04/06/21 19:34> Vital Signs Vital signs: Vital Signs Temperature 36.3 C L 04/06/21 17:18 Pulse 56 L 04/06/21 17:18 Respiratory Rate 16 04/06/21 17:18 Blood Pressure 140/75 04/06/21 17:18 Pulse Oximetry 99 04/06/21 17:18 Temperature 36.3 C L 04/06/21 17:18 Pulse 56 L 04/06/21 17:18 Respiratory Rate 16 04/06/21 17:18 Respiratory Effort 04/06/21 17:21 Blood Pressure 140/75 04/06/21 17:18 Blood Pressure Position Supine 04/06/21 17:18 Pulse Oximetry 99 04/06/21 17:18 Oxygen Delivery Method Room Air 04/06/21 17:18 Oxygen Flow Rate 0 04/06/21 17:18 Pain Level 2 04/06/21 17:18 Sign Out <Jefry Espinoza MD - Last Filed: 04/06/21 19:34> Sign Out Data: Sign Out Comment: fall, has likely stable c6 fracture, pending spine consult Last updated by Jefry Espinoza MD at 04/06/21 19:35
[2021-04-06 19:26] VITALS: BP 154/75; PULSE 60; RESP 18; O2SAT 98
--- NOTE | 2021-04-06 19:29 | DI.VRAD_ITS ---
PROCEDURE INFORMATION: Exam: CT Thoracic Spine Without Contrast Exam date and time: 04/06/2021 5:28 PM Age: 80 years old Clinical indication: Other: Fall TECHNIQUE: Imaging protocol: Computed tomography images of the thoracic spine without contrast. COMPARISON: CR XR THORACIC SPINE COMPLETE 04/16/2019 11:13 AM FINDINGS: Vertebrae: No acute fracture. Normal alignment. Discs/Spinal canal/Neural foramina: Anterior ligamentous ossification and osteophytes noted. Interspinous ligament ossification noted at several levels. No significant disc protrusion. No severe spinal canal stenosis. No significant neural foraminal narrowing. Soft tissues: Unremarkable. IMPRESSION: Unremarkable thoracic spine. No evidence of thoracic spine fracture. Dictated and Authenticated by: Jefry Rivera MD. Ordering:SERENE Capps MD
--- NOTE | 2021-04-06 19:31 | DI.VRAD_ITS ---
PROCEDURE INFORMATION: Exam: CT Head Without Contrast Exam date and time: 04/06/2021 5:28 PM Age: 80 years old Clinical indication: Patient HX: [place] crack in neck after fall TECHNIQUE: Imaging protocol: Computed tomography of the head without contrast. COMPARISON: MR BRAIN WO 03/31/2020 8:13 AM FINDINGS: Brain: There is moderate diffuse cerebral atrophy present, consistent with this patient's age. No midline shift, mass effect, intracranial hemorrhage or extra-axial fluid collection. Cerebral ventricles: No ventriculomegaly. Paranasal sinuses: Left maxillary sinus mucoperiosteal thickening most likely compatible with chronic sinusitis. Mastoid air cells: Visualized mastoid air cells are well aerated. Bones/joints: Unremarkable. No acute fracture. Soft tissues: Unremarkable. IMPRESSION: 1. No evidence of acute intracranial abnormality. 2. Left maxillary sinus mucoperiosteal thickening most likely compatible with chronic sinusitis. PROCEDURE INFORMATION: Exam: CT Cervical Spine Without Contrast Exam date and time: 04/06/2021 5:28 PM Age: 80 years old Clinical indication: Patient HX: [place] crack in neck after fall TECHNIQUE: Imaging protocol: Computed tomography images of the cervical spine without contrast. COMPARISON: MR BRAIN WO 03/31/2020 8:13 AM FINDINGS: Bones/joints: Nondisplaced fracture through the bilateral lamina and base of the spinous process of C6. The vertebral arch of C6 is intact, making this injury unlikely to be unstable. Normal alignment of the cervical spine. The vertebral body heights are preserved. Discs/Spinal canal/Neural foramina: No significant disc protrusion. No severe spinal canal stenosis. No significant neural foraminal narrowing. Lungs: Lung apices are normal. Soft tissues: Unremarkable. Other findings: No other osseous injury identified. IMPRESSION: Nondisplaced fracture through the bilateral lamina and base of the spinous process of C6. The vertebral arch of C6 is intact, making this injury unlikely to be unstable. Dictated and Authenticated by: Cristo Trujillo MD. Ordering:SERENE Capps MD
--- NOTE | 2021-04-06 20:45 | DI.RAD_ITS ---
Exam(s) XR CERVICAL SP THURSTON TRAUMA 2-3V EXAM: XR CERVICAL SP THUR[place]ON TRAUMA 2-3V CLINICAL HISTORY: c6 fracture, assess stability in aspen TECHNIQUE: COMPARISON: CT CT HEAD CERVICAL SPINE WO from 04/06/[address] THORACIC SPINE WO from 04/06/[address] THORACIC SPINE WO from 04/06/2021 FINDINGS: Two views were obtained. The C6 lamina fracture noted on CT is visible on the lateral view, there is mild displacement at this site. IMPRESSION: RADIATION DOSE DELIVERED: Total DLP
--- NOTE | 2021-04-06 21:02 | NUR.NOTE ---
Radiology called for repeat imaging.Nursing Note:
--- NOTE | 2021-04-06 21:11 | NUR.NOTE ---
To DI per wheelchair. Able to stand independently. Teaberry collar in place.Nursing Note:
[2021-04-06 21:22] VITALS: BP 145/75; PULSE 64
--- NOTE | 2021-04-06 21:28 | DI.VRAD_ITS ---
PROCEDURE INFORMATION: Exam: XR Cervical Spine Exam date and time: 04/06/2021 8:49 PM Age: 80 years old Clinical indication: Injury or trauma; Fall; Fracture, traumatic injury; Closed TECHNIQUE: Imaging protocol: XR of the cervical spine. Views: 2 or 3 views. COMPARISON: CT HEAD CERVICAL SPINE WO 04/06/2021 6:53 PM FINDINGS: Bones/joints: Fracture in the C6 posterior elements partially visualized with mild diastasis. Negative for anterior or posterior translation of vertebral bodies. Soft tissues: Unremarkable. Lungs: Lung apices are clear. Other findings: Cervical collar in place. C1 through C5 visible in lateral projection. IMPRESSION: 1. Fracture C6 posterior elements. 2. Normal alignment. Dictated and Authenticated by: Jefry Rivera MD. Ordering:ZAYDA Molina MD
--- NOTE | 2021-04-06 21:29 | NUR.NOTE ---
Ambulates to restroom with steady gait. Spouse accompanies. Denies pain. Repositioned in bed with HOB elevated,pillow provided. Lights dimmed for comfort. Call light in reach.Nursing Note:
== END 2021-04-06 21:53 | disposition home or self-care (01) ==
PROVIDERS: Emergency Provider Emergency Medicine; PCP Family Medicine
DX: S12.590A Other displaced fracture of sixth cervical vertebra, initial encounter for closed fracture (principal); M54.6 Pain in thoracic spine; S09.8XXA Other specified injuries of head, initial encounter; W17.89XA Other fall from one level to another, initial encounter
CPT/HCPCS: 93005; 99214; 99284; 70450; 72040; 72125; 72128; 99283

== ENCOUNTER 2021-06-22 02:13 | Outpatient (CLI) | payer MEDICARE, SELFPAY ==
--- NOTE | 2021-06-22 15:00 | DI.DEXA_ITS ---
Exam(s) XR DEXA BONE DENSITY W/WO FIORDALIZA EXAM: XR DEXA BONE DENSITY W/WO FIORDALIZA CLINICAL HISTORY: OSTEOPOROSIS WO CURRENT PATHOLOGICAL FX, M81.0 TECHNIQUE: WalkSource C densitometer COMPARISON: CR XR THORACIC SPINE COMPLETE from 04/16/2019 CR XR DEXA BONE DENSITY W/WO FIORDALIZA from 05/27/2019 CR,XR XR CERVICAL SP THURSTON TRAUMA 2-3V from 04/06/2021 FINDINGS: Lateral view of the thoracic and lumbar spine shows mild anterior wedging at the thoracolumbar juncti on. Similar to prior T spine plain films. Bone mineral density measurements of the lumbar spine correspond to a total T-score of -2.5, in the osteoporotic range. This represents an 8.2 percent increase when compared with previous exam. Bone mineral density measurements of the left hip correspond to a total T-score of -2.1. The femora l neck T-score is -2.3, in the osteopenic range. This represents a 4 percent increase when compared with the previous exam. The left forearm bone mineral density measurements correspond to a T-score of the distal 3rd of negat nacho 2.4. Total T-score is -3.0. This is a 2.8 percent increase when compared with 2019. . IMPRESSION: Mild lower thoracic compression fracture, stable. Osteopenia of the left hip and left forearm. Osteoporosis of the lumbar spine. There has been mild improvement in bone density when compared with 2019.
== END 2021-06-22 02:33 ==
PROVIDERS: PCP Family Medicine; Visit Provider Nurse Practitioner Family
DX: M80.88XA Other osteoporosis with current pathological fracture, vertebra(e), initial encounter for fracture (principal); M85.89 Other specified disorders of bone density and structure, multiple sites
CPT/HCPCS: 77080

== ENCOUNTER 2021-07-10 01:05 | Emergency (ER) | payer MEDICARE, SELFPAY ==
[2021-07-10] VITALS (23 sets, daily range): BP systolic 100–143; BP diastolic 71–101; PULSE 66–157; RESP 15–25; TEMP 36.3; O2SAT 96–99
--- NOTE | 2021-07-10 01:00 | RT.EKG_ITS ---
APPROVED REPORT Exam: Resting ECG Reason for Exam: irregular heart rate Patient Location: E HR:151 bpm ECG Measurements Heart Rate 151 AXIS NE 62 P 0 QRSd 94 QRS 9 QT 345 T 248 QTc 548 Conclusion Supraventricular tachycardia...V-rate>(220-age), QRSd<120 Ventricular premature complex...V complex w/ short R-R interval Repolarization abnormality, prob rate related...ST dep, T neg, tachycardia Physician: Rate 151, SVT, rate related depression in V4 V5 and V6. No ST elevation. No STEMI
--- NOTE | 2021-07-10 01:35 | ED.GENADUL_ITS ---
Discharge Plan Disposition Patient Disposition: HOME Condition: Good Discharge Details Clinical Impression: SVT (supraventricular tachycardia), A-fib Primary Care Provider: Jenny York ED Provider: William Sandhu Home Meds and New Rx's Prescriptions: Continued mecobalamin (vitamin B12) 1,000 mcg tablet,chewable 1,000 mcg PO DAILY RF: 0 tamsulosin [Flomax] 0.4 mg capsule 0.4 mg PO QHS Qty: 90 RF: 1 metoprolol succinate 25 mg tablet extended release 24 hr 12.5 mg PO DAILY RF: 0 fluticasone propionate [Allergy Relief (fluticasone)] 50 mcg/actuation spray,suspension 2 spray intranasal DAILY PRNRF: 0 Xarelto 20 mg tablet 20 mg PO DAILY RF: 0 Prolia 60 mg/mL syringe 60 mg subcut [id number] RF: 0 calcium carbonate [Calcium 500] 500 mg calcium (1,250 mg) tablet 1,000 mg PO DAILY RF: 0 Curcumin 95 % powder miscellaneous DAILY RF: 0 clotrimazole-betamethasone 1-0.05 % cream 1 applic topical BID RF: 0 Discharge Instructions Instructions: Supraventricular Tachycardia (ED) Additional Instructions: At this time your heart rate has notably improved. After our discussion together we have elected to go home. We are giving you a very small dose of metoprolol. Please take the 12.5 mg dose if your heart rate remains above 100. As we discussed we are holding off for now out of concern that it may cause. Bradycardia that you have had in the past. We will allow you to go home, sleep, and hopefully this will resolve the slight continued increased heart rate. Please follow-up very closely with Dr. Mario and Dr. Stauffer. Please return promptly if your heart rate jumps again. If you notice any worsening of your symptoms, or any new symptoms such as vomiting, diarrhea, fever, chills, shortness of breath, chest pain, numbness, weakness, or fainting , please return immediately to the emergency department for reevaluation. Please follow up with your primary care provider as soon as possible for reassessment and reevaluation. As always, it was a pleasure participating in your medical care today. Referrals: Jenny York MD [Primary Care Provider] - Medical Decision Making This is an 81-year-old male with a past medical history of tachybradycardia syndrome, paroxysmal A. fib, rivaroxaban anticoagulation use, who is DNR/DNI presents today for evaluation of palpitations. Over the last few weeks the patient was experiencing notably low heart rates in the 30s, and so he was transitioned off of his regular metoprolol. Unfortunately over the last few days he has developed a bit of tachycardia show intermittently occur into the rates in the 150s. He has a fast acting 20 mg oral metoprolol that he takes to help stop this. Tonight he had an elevation in his heart rate into the 150s, he took 20 mg of metoprolol at 9 PM, and unfortunately his heart rate remained elevated since then. He denies headache, syncope, chest pain or shortness of breath. He denies numbness tingling or weakness. No significant caffeine intake. No other complaints at this time. Physical exam is unremarkable. Heart rate at this time is in the 150s suspect A. fib with RVR based on the rhythm strip, however blood pressure stable. No indication for emergent cardioversion. I discussed the case with his , and she would be open to admission. We will start with IV metoprolol has his heart seems to often be responsive to this. We will gently rehydrate monitor closely and reassess. 2 AM IV metoprolol had no effect. EKG and rhythm strip now seems to demonstrate evidence of SVT rather than A. fib with RVR. Heart rate remains in the 140s to 150s. Modified Valsalva technique was attempted with no improvement or change. was brought to bedside. We had a long discussion about treatment. We discussed Cardizem, pacer pads, risks and benefits of temporary CPR if needed. With that long thorough discussion with the at bedside with the patient we weighed the risks and benefit of all of these different treatment modalities. Through shared decision-making process the and have decided that in this ossific scenario they would be okay with this acute intervention, as well as an episode of shocking or a brief episode of CPR if indicated. However they also made it abundantly clear that if there was a complication with the procedure which they fully understand, and the patient clinical status begins to rapidly decline, they would like all interventions to be halted, and they would like the patient's natural course to progress naturally without any additional interventions. 2:37 AM Patient was given an initial 6 mg of adenosine, no effect whatsoever. 12 mg were then given, and there was a minimal slight decrease in his rate for a few seconds and then resolved. The decision was made to then get a second IV that was not in his hand but rather proximally located in his arm. 12 mg was given at the second site, and the patient demonstrated a appropriate brief episode of bradycardia/asystole, and then transition back to a heart rate in the 90s to 110. Repeat EKG now demonstrates a flutter versus A. fib. With a much more copacetic rate. We will continue to monitor gently rehydrate and reassess. 3:15 AM Patient has remained with a stable heart rate of around 100-110. He does not feel any lightheadedness chest pain. He feels much better. We had a long discussion with the patient and his at bedside regarding next steps in management, including admission versus discharge and close outpatient follow-up. Taking into consideration the patient's wishes, there is life goals, and the fact that his notable heart rate has now been significantly improved, the patient has elected to go home and follow-up closely with Dr. Thomas and Dr. Mario. Family is a bit hesitant with taking any oral metoprolol secondary to his previous episodes of bradycardia, and so will hold off on any additional medications now, at their request. However we will give them a 12.5 mg pill/tablet to go home with, and if after resting and sleeping when he wakes up he still finds his heart rate to be elevated in the low 100s, then we will recommend taking the medication. Discussed red flags for which return. I have extensively reviewed the treatment plan and discharge instructions with the patient and their family. I have addressed all patient concerns at this time. The patient and family was made aware of what symptoms to monitor for that would warrant a return to the emergency department. Discussed the plan with the patient and family, they demonstrate verbal understanding and agreement with our assessment and plan at this time. The documentation in this chart was dictated using [employer] dictation software. Please excuse any dictation errors. EKG 1: 19 Rate 151, SVT, rate related depression in V4 V5 and V6. No ST elevation. No STEMI HPI General Date/Time Provider Initiated Documentation: 07/10/21 01:17 . HPI Narrative: This is an 81-year-old male with a past medical history of tachybradycardia syndrome, paroxysmal A. fib, rivaroxaban anticoagulation use, who is DNR/DNI presents today for evaluation of palpitations. Over the last few weeks the patient was experiencing notably low heart rates in the 30s, and so he was transitioned off of his regular metoprolol. Unfortunately over the last few days he has developed a bit of tachycardia show intermittently occur into the rates in the 150s. He has a fast acting 20 mg oral metoprolol that he takes to help stop this. Tonight he had an elevation in his heart rate into the 150s, he took 20 mg of metoprolol at 9 PM, and unfortunately his heart rate remained elevated since then. He denies headache, syncope, chest pain or shortness of breath. He denies numbness tingling or weakness. No significant caffeine intake. No other complaints at this time. Related Data Home Medications Medication Instructions Recorded Confirmed denosumab 60 mg/mL subcutaneous 60 mg SUBCUT [id number] 02/26/20 07/10/21 syringe mecobalamin (vitamin B12) 1,000 1,000 mcg PO DAILY 06/07/20 07/10/21 mcg chewable tablet calcium carbonate 500 mg calcium 1,000 mg PO DAILY tab 10/03/20 06/27/21 (1,250 mg) tablet clotrimazole-betamethasone 1 1 applic TOPICAL BID 10/03/20 07/10/21 %-0.05 % topical cream turmeric (bulk) 95 % powder pwd MISCELLANEOUS DAILY g 10/03/20 06/27/21 tamsulosin 0.4 mg capsule 0.4 mg PO QHS #90 cap 02/24/21 07/10/21 fluticasone propionate 50 2 spray INTRANASAL DAILY PRN 04/06/21 07/10/21 mcg/actuation nasal spray,suspension rivaroxaban 20 mg tablet 20 mg PO DAILY 04/06/21 07/10/21 metoprolol succinate 25 mg 12.5 mg PO DAILY tab 06/27/21 07/10/21 tablet,extended release 24 hr Previous Rx's Medication Instructions Recorded tamsulosin 0.4 mg capsule 0.4 mg PO QHS #90 cap 02/24/21 Allergies Allergy/AdvReac Type Severity Reaction Status Date / Time cephalexin [Cephalexin] AdvReac Intermediate Diarrhea Verified 07/10/21 01:31 General Stated Complaint: Palpitatns LYN: 2 Review of Systems All systems reviewed & are unremarkable except as noted in HPI and below PFSH All Active Problems (Updated 07/10/21 @ 03:21 by William Sandhu DO) SVT (supraventricular tachycardia) (Chronic) A-fib (Chronic) Atrial dilatation, bilateral (Chronic) mild per ECHO 2020 Lightheadedness (Acute) when bradycardic Clamminess (Acute) when bradycardic Movement disorder (Chronic) [facility] neurology evaluation Blunt head trauma (Acute) Fracture of C6 vertebra, closed (Acute) Paroxysmal atrial fibrillation (Acute) Chronic anticoagulation (Acute) apixaban as of February 2021 Atrial fibrillation (Chronic) newly recognized February 2021 BPH associated with nocturia (Acute) Walker as ambulation aid (Acute) Short-term memory loss (Acute) Executive function deficit (Acute) Health care proxy on file (Chronic) Shelia Chamberlain, his DNI (do not intubate) (Acute) DNR (do not resuscitate) (Acute) POLST (Physician Orders for Life-Sustaining Treatment) (Acute) History of carpal tunnel surgery of left wrist (Acute) Goals of care, counseling/discussion (Acute) Hypophonia (Acute) Palliative care patient (Acute) Fatigue (Acute) Cubital tunnel syndrome, bilateral (Acute) Bilateral carpal tunnel syndrome (Acute) Kyphosis (Acute) Peripheral neuropathy (Acute) Hand paresthesia (Acute) Camptocormia (Acute) Cognitive impairment (Chronic) Tubular adenoma (Acute ~03/2020) 2 tubular adenomas, repeat colo PRN (age) Dr. Samantha Yeager Bullous pemphigoid (Chronic) Medical History Actinic keratosis Anemia Candidal intertrigo Chronic rhinitis Erectile dysfunction Gait abnormality Hepatitis C Mild memory disturbance Nocturia Onychomycosis of toenail Osteoporosis Polyneuropathy Travel advice encounter around COVID-19, international travel Vision changes Family History Brother Advanced age brother 92 yo 2020 Dementia Brother , age 86 from unknown neuro disease Neurodegenerative disorder Son No problems noted. Son No problems noted. 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 Pets and animals: Yes Pets and animals: cat(s) Do you think of yourself as: straight/heterosexual Current gender identity: male What is your relationship status?: How often do you talk on the phone with friends or family?: three or more times per week How often do you get together with friends or relatives?: twice per week How often do you attend taoist or sikhism services?: 4 or more times per year Do you belong to any clubs or organized social groups?: yes Panel score (0-1 are the most socially isolated patients): 4 What type of physical activity do you participate in: assisted ambulation and additional Details: gardening Duration: 30-45 minutes/day Frequency: 5-6 times per week Laurence/Mormon: Nguyen Special laurence needs: No Seatbelt use: always Working smoke detector in home: Yes Fire extinguisher in home: Yes Firearms in home: No Do you feel safe at home: Yes Do you feel safe in your relationship?: Yes Additional Social history: Chandu lives with his , Shelia, who is 19 years his marie. They have 2 sons, Donald and Jewel. Donald lives in [place] and Jewel lives in [place]. Chandu has always been physically active. 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 It is very difficult for him to walk on his own. Does much better with walker. Unclear cause of his cognitive decline. Brother also with dementia NOS. In his youth, Chandu worked extensively with DDT and other pesticides. 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 There he was exposed to pesticides, too. About to start work renovating their house so Chandu will have bedroom and bathroom on first floor. Exam Narrative Exam Narrative: 1.Const: Well-nourished, Well-developed, appearing stated age 2.Eyes: PERRL, no conjunctival injection, and symmetrical lids. 3.ENT: Atraumatic external nose and ears. Moist MM. Neck: Symmetric, trachea midline, No thyromegaly. 4.CVS: +S1/S2, No murmurs or gallops. Peripheral pulses 2+ and equal in all extremities. Brisk capillary refill in all extremities. 5.RESP: Unlabored respiratory effort. Clear to auscultation bilaterally. No wheezes rales or rhonchi 6.GI: Soft, Nontender/Nondistended, No hepatosplenomegaly. No guarding or rebound. 7.MSK: Normocephalic/Atraumatic, Extremities w/o deformity or ttp No cyanosis or clubbing, Normal movement of all extremities 8.Skin: Warm, Dry. No rashes or lesions. 9.Neuro: ged instructor II-XII grossly intact. Sensation grossly intact, no focal neurologic deficits. 10.Psych: (AAO) x3. Appropriate mood and affect Course Vital Signs Vital signs: Vital Signs Temperature 36.3 C L 07/10/21 01:22 Pulse 153 H 07/10/21 01:22 Respiratory Rate 18 07/10/21 01:22 Blood Pressure 143/101 H 07/10/21 01:22 Pulse Oximetry 99 07/10/21 01:22 Temperature 36.3 C L 07/10/21 01:22 Temperature Source Skin 07/10/21 01:22 Pulse 153 H 07/10/21 01:22 Respiratory Rate 18 07/10/21 01:22 Blood Pressure 143/101 H 07/10/21 01:22 Pulse Oximetry 99 07/10/21 01:22 Critical Care Time Critical Care Time Critical Care Time: Yes Total Critical Care Time: 45 Attestation: Upon my evaluation, this patient had a high probability of imminent or life-threatening deterioration, which required my direct attention, intervention, and personal management. I have personally provided 45 minutes of critical care time exclusive of time spent on separately billable procedures. Time includes review of laboratory data, radiology results, discussion with consultants, and monitoring for potential decompensation. Interventions were performed as documented.
[2021-07-10 01:39] LABS: Abs Immature Grans 0.01 10^3/uL (0.0-0.06); Absolute Basophil Count 0.07 10^3/uL (0.0-0.2); Absolute Eosinophil Count 0.35 10^3/uL (0.0-0.7); Absolute Lymphocyte Count 1.48 10^3/uL (1.2-3.4); Absolute Monocyte Count 0.73 10^3/uL (0.1-0.8); Absolute Neutrophil Count 3.92 10^3/uL (1.2-6.7); Basophils % 1.1; Eosinophils % 5.3; HCT 44.9 % (40.0-50.0); HGB 14.8 g/dL (13.5-17.5); Immature Grans % 0.2; Lymphocytes % 22.6; MCV 93.9 fL (80-95); Monocytes % 11.1; Neutrophils % 59.7; Nucleated RBC 0 %; Platelet Count 185 10^3/uL (130-400); RBC 4.78 10^6/uL (4.36-5.78); RDW 12.6 % (11.8-14.1); RDW-SD 43.6 fL; WBC 6.56 10^3/uL (4.4-10.8)
[2021-07-10] MEDS: Normal Saline 500 ML IV (01:40)
[2021-07-10] MEDS: Metoprolol 5 MG/5 ML VIAL 2.5 MG IVP (01:40)
[2021-07-10 02:02] LABS: ALT 16 U/L (16-63); AST 19 U/L (15-37); Albumin 3.9 g/dL (3.4-5.0); Alkaline Phosphatase 56 U/L (46-116); Anion Gap 10.2 mmol/L (3-11); BUN 27 mg/dL (7-18); Bilirubin, Total 0.3 mg/dL (0.2-1.0); CO2 24.8 mmol/L (21.0-32.0); CREATININE 0.8 mg/dL (0.70-1.30); Calcium 8.6 mg/dL (8.5-10.1); Chloride 105 mmol/L (98-107); Glucose 111 mg/dL (74-106); NT-proBNP 2163 pg/mL (<300); Potassium 4.1 mmol/L (3.5-5.1); Sodium 140 mmol/L (136-145); TSH (W/Ref FT4) 4.88 uIU/mL (0.36-3.74); Total Protein 7.4 g/dL (6.4-8.2); Troponin I < 50 ng/L (<or=60)
[2021-07-10 02:20] LABS: FREE T4 1.02 ng/dL (0.76-1.46)
[2021-07-10] MEDS: Adenosine 6 MG/2 ML VIAL IVP (02:20)
[2021-07-10] MEDS: Adenosine 6 MG/2 ML VIAL ×2 (02:24→02:33)
--- NOTE | 2021-07-10 02:30 | RT.EKG_ITS ---
APPROVED REPORT Exam: Resting ECG Reason for Exam: rapid heart rate Patient Location: E HR:110 bpm ECG Measurements Heart Rate 110 AXIS WI [id number] P [id number] QRSd 96 QRS 7 QT 358 T 39 QTc 485 Conclusion Atrial fibrillation...V-rate 72-140, irreg A-activity Physician: afib vs aflutter, no significant st elevations or depressions
--- NOTE | 2021-07-10 03:22 | NUR.NOTE ---
Referral faxed to patient pcp Dr York to f/u in the next day or two for SVT. Nursing Note:
[2021-07-10] MEDS: Metoprolol 12.5 MG TAB PO (03:36)
== END 2021-07-10 03:45 | disposition home or self-care (01) ==
PROVIDERS: Emergency Provider Student in an Organized Health Care Education/Training Program; PCP Family Medicine
DX: I47.1 Supraventricular tachycardia (principal); I48.91 Unspecified atrial fibrillation
CPT/HCPCS: 80053; 93005; 96361; 96374; 96375; 96376; 99291; 83880; 84439; 84443; 84484; 85025; 93010; J0153; J3490

== ENCOUNTER → 2021-07-17 14:00 | Outpatient (BNVA) | payer MEDICARE, SELFPAY | PROVIDERS: PCP Family Medicine; Referring Provider Family Medicine; Visit Provider Nurse Practitioner Adult Health | DX: F44.4 Conversion disorder with motor symptom or deficit (principal); G31.84 Mild cognitive impairment of uncertain or unknown etiology | CPT/HCPCS: 99213; 99215 ==

== ENCOUNTER 2021-07-19 08:14 | Outpatient (CLI) | payer MEDICARE, SELFPAY ==
--- NOTE | 2021-07-19 08:00 | RT.EKG_ITS ---
APPROVED REPORT Exam: Resting ECG Reason for Exam: afib Patient Location: O HR:72 bpm ECG Measurements Heart Rate 72 AXIS MS 143 P 46 QRSd 102 QRS 42 QT 423 T 23 QTc 463 Conclusion Sinus rhythm...normal P axis, V-rate 50- 99 Ventricular bigeminy...bigeminy string>4 w/ V complexes Probable left atrial enlargement...P >50mS, <-0.10mV V1
== END 2021-07-19 08:15 | disposition home or self-care (01) ==
LOC: DI.CARD 08:15
PROVIDERS: PCP Family Medicine; Visit Provider Physician Assistant
DX: I47.1 Supraventricular tachycardia (principal); I48.91 Unspecified atrial fibrillation
CPT/HCPCS: 93005; 93010; 93246; 99215

== ENCOUNTER → 2021-07-19 12:51 | Outpatient (BNVA) | payer MEDICARE, SELFPAY | PROVIDERS: PCP Family Medicine; Referring Provider Family Medicine; Visit Provider Physician Assistant | DX: R69 Illness, unspecified (principal) ==

== ENCOUNTER 2021-07-19 14:54 | Outpatient (CLI) | payer MEDICARE, SELFPAY ==
--- NOTE | 2021-08-07 09:12 | W.CARDEVENT ---
Date of service: 08/07/21 Time of Service: 09:12 Cardiac Event Recorder Referring Provider:: Omid Camarillo Indications:: Paroxysmal atrial flutter and fibrillation Cardiac Event Note: This is a 14-day event monitor, ordered for paroxysmal atrial fibrillation and flutter Predominant rhythm was sinus, which was present 63% of the time. Minimum heart rate was 47. Average was 90, maximum in sinus rhythm was 109 There were occasional to frequent ventricular ectopic beats, including couplets bigeminy and trigeminy. A total of four episodes of nonsustained ventricular tachycardia were recorded, the longest of which was 5 beats in duration Atrial fibrillation was present 37% of the recording. The longest episode lasted 2 days and 5 hours. Patient symptoms of rapid heart rate corresponded to atrial fibrillation rates in the 140s. There were rare to occasional atrial premature beat and multiple self-limited atrial runs the longest of which lasted 11 beats in duration. These were distinct from atrial fibrillation There was no high-grade AV block, no pauses greater than 3 seconds
== END 2021-07-19 14:55 | disposition home or self-care (01) ==
PROVIDERS: PCP Family Medicine; Visit Provider Physician Assistant
DX: I48.0 Paroxysmal atrial fibrillation (principal); I47.1 Supraventricular tachycardia; I49.3 Ventricular premature depolarization; I48.92 Unspecified atrial flutter
CPT/HCPCS: 93005; 99215

== ENCOUNTER 2021-08-07 09:12 | Outpatient (CLI) | payer MEDICARE, SELFPAY | END 2021-08-07 09:13 | LOC: CARDO 09-13 14:48 | PROVIDERS: PCP Family Medicine; Referring Provider Physician Assistant; Visit Provider Internal Medicine Cardiovascular Disease | DX: I48.0 Paroxysmal atrial fibrillation (principal); I49.3 Ventricular premature depolarization | CPT/HCPCS: 93248 ==

== ENCOUNTER 2021-09-13 14:43 | Outpatient (CLI) | payer MEDICARE, SELFPAY | END 2021-09-13 14:44 | LOC: CARDO 14:44 | PROVIDERS: PCP Family Medicine; Referring Provider Physician Assistant; Visit Provider Internal Medicine Cardiovascular Disease | DX: R69 Illness, unspecified (principal) ==

== ENCOUNTER 2021-10-11 14:06 | Outpatient (CLI) | payer MEDICARE, SELFPAY ==
--- NOTE | 2021-10-11 14:00 | RT.EKG_ITS ---
APPROVED REPORT Exam: Resting ECG Reason for Exam: afib Patient Location: O HR:54 bpm ECG Measurements Heart Rate 54 AXIS WA 158 P 67 QRSd 104 QRS 10 QT 427 T 76 QTc 405 Conclusion Sinus rhythm...normal P axis, V-rate 50- 99 Probable left atrial enlargement...P >50mS, <-0.10mV V1 Borderline T abnormalities, lateral leads...T flat/neg, I aVL V5 V6
== END 2021-10-11 14:07 | disposition home or self-care (01) ==
LOC: DI.CARD 14:09
PROVIDERS: PCP Family Medicine; Referring Provider Family Medicine; Visit Provider Internal Medicine Cardiovascular Disease
DX: I48.91 Unspecified atrial fibrillation (principal)
CPT/HCPCS: 93010

== ENCOUNTER → 2021-10-11 14:06 | Outpatient (BNVA) | payer MEDICARE, SELFPAY | PROVIDERS: PCP Family Medicine; Referring Provider Family Medicine; Visit Provider Internal Medicine Cardiovascular Disease | DX: I48.92 Unspecified atrial flutter (principal); I48.91 Unspecified atrial fibrillation | CPT/HCPCS: 93005; 99214 ==

== ENCOUNTER 2021-11-13 04:12 | Outpatient (CLI) | payer MEDICARE, SELFPAY ==
[2021-11-13] MEDS: Albuterol HFA 18 GM 200 PUFF INH IH (15:43)
[2021-11-13] MEDS: Inhaler, Assist Device 1 EACH MC (15:43)
--- NOTE | 2021-11-14 11:16 | W.PFT ---
Date of service: 11/13/21 Time of Service: 15:06 Pulmonary Function Test Result Requesting Provider Orestes Godinez Indications: On amiodarone therapy - screening Interpretation Spirometry: There is no airflow limitation. There is no significant bronchodilator response. Lung Volumes: There are normal lung volumes Diffusion Capacity: There is a normal diffusion Airway Pressure: Normal airways resistance. Impression Normal PFT's Note: No prior PFT in system to compare Clinical Correlation therefore is recommended.
== END 2021-11-13 04:13 | disposition home or self-care (01) ==
PROVIDERS: PCP Family Medicine; Visit Provider Internal Medicine Cardiovascular Disease
DX: I48.91 Unspecified atrial fibrillation (principal); Z79.899 Other long term (current) drug therapy
CPT/HCPCS: 94060; 94726; 94729

== ENCOUNTER → 2021-12-12 12:35 | Outpatient (BNVA) | payer MEDICARE, SELFPAY | PROVIDERS: PCP Family Medicine; Referring Provider Family Medicine; Visit Provider Nurse Practitioner Adult Health | DX: R41.89 Other symptoms and signs involving cognitive functions and awareness (principal); G31.89 Other specified degenerative diseases of nervous system | CPT/HCPCS: 99214 ==

== ENCOUNTER → 2022-01-04 12:22 | Outpatient (BNVA) | payer MEDICARE, SELFPAY | PROVIDERS: PCP Family Medicine; Referring Provider Family Medicine; Visit Provider Psychiatry & Neurology Neurology | DX: R29.2 Abnormal reflex (principal); R29.898 Other symptoms and signs involving the musculoskeletal system; G31.9 Degenerative disease of nervous system, unspecified | CPT/HCPCS: 99214 ==

== ENCOUNTER → 2022-01-30 01:35 | Outpatient (CLI) | payer MEDICARE, SELFPAY ==
--- NOTE | 2022-01-30 06:45 | DI.MRI_ITS ---
Exam(s) MR THORACIC SPINE WO EXAM: MR THORACIC SPINE WO CLINICAL HISTORY: Bilateral Babinski with gait imbalance,R29.2. TECHNIQUE: Multiplanar multisequence MRI was performed. COMPARISON: CT CT THORACIC SPINE WO from 04/06/2021 FINDINGS: MR examination of the thoracic spine was performed according to the usual protocol. Note is made of mild anterior compression fractures of C7 and T4 vertebral bodies, these are mildly i ncreased in severity since prior CT examinations of March 2021. No significant retropulsion identi fied. Spinal canal appears well maintained at these levels. No evidence of central canal spinal stenosis or neural foraminal stenosis in the thoracic region. No focal disc herniation seen. Thoracic spinal cord shows normal signal and normal diameter throughout with unremarkable appearance of the conus medullaris. There are endplate and facet hypertrophic changes noted throughout the thoracic and upper lumbar immanuel on. IMPRESSION: Degenerative changes, mild increased loss of vertebral body height associated with mild anterior comp ression fractures at C7 and T4 since March 2021. No evidence of neural impingement. No spinal cord abnormality. DATA REPOSITORY:
--- NOTE | 2022-01-30 06:45 | DI.MRI_ITS ---
Exam(s) MR CERVICAL SPINE WO EXAM: MR CERVICAL SPINE WO CLINICAL HISTORY: bilateral Babinski - new gait imbalance,R29.2. TECHNIQUE: Multiplanar multisequence MRI was performed. COMPARISON: CR,XR XR CERVICAL SP THURSTON TRAUMA 2-3V from 04/06/[address] HEAD CERVICAL SPINE WO from 04/06/[address] THORACIC SPINE WO from 04/06/2021 FINDINGS: Cervical spine MRI was performed according to the usual protocol. No significant bony signal abnormality is seen. Note is made of a mild anterior compression fracture of the vertebral body of C7 which was not present on prior cervical spine CT of March 2021. No ad ditional bony lesion identified. There are mild disc bulges at C 3 4, C4-5, and C6-7. Minimal convex contour of C7 vertebral body not ed. The bony spinal canal is widely patent throughout with no central canal spinal stenosis. There may be mild narrowing of neural foramina bilaterally at C4-5 and C5-6. Otherwise neural foramina are fairly well maintained. Spinal cord shows normal diameter and normal signal throughout. Visualized posterior fossa structure s are unremarkable. IMPRESSION: New mild anterior compression fracture of C7 vertebral body. Please correlate with history of trauma . No evident neural impingement resulting from this deformity. DATA REPOSITORY:
== END ==
PROVIDERS: PCP Family Medicine; Visit Provider Psychiatry & Neurology Neurology
DX: R29.2 Abnormal reflex (principal); M48.52XA Collapsed vertebra, not elsewhere classified, cervical region, initial encounter for fracture; M48.54XA Collapsed vertebra, not elsewhere classified, thoracic region, initial encounter for fracture
CPT/HCPCS: 72141; 72146

== ENCOUNTER → 2022-02-21 10:56 | Outpatient (BNVA) | payer MEDICARE, SELFPAY | PROVIDERS: PCP Family Medicine; Referring Provider Family Medicine; Visit Provider Psychiatry & Neurology Neurology | DX: R29.2 Abnormal reflex (principal); R29.898 Other symptoms and signs involving the musculoskeletal system; G31.9 Degenerative disease of nervous system, unspecified | CPT/HCPCS: 99214 ==

== ENCOUNTER 2022-03-14 02:43 | Outpatient (CLI) | payer MEDICARE, SELFPAY ==
[2022-03-14 17:37] LABS: ALT 19 U/L (16-63); AST 17 U/L (15-37); Albumin 3.7 g/dL (3.4-5.0); Alkaline Phosphatase 69 U/L (46-116); Anion Gap 4.5 mmol/L (3-11); BUN 20 mg/dL (7-18); Bilirubin, Total 0.3 mg/dL (0.2-1.0); CO2 31.5 mmol/L (21.0-32.0); Calcium 8.5 mg/dL (8.5-10.1); Chloride 104 mmol/L (98-107); Estimated GFR 75.61 (mL/min/1.73m2); Glucose 111 mg/dL (74-106); Sodium 140 mmol/L (136-145); TSH (W/Ref FT4) 1.61 uIU/mL (0.36-3.74)
== END 2022-03-14 02:44 | disposition home or self-care (01) ==
LOC: LBO 02:43
PROVIDERS: PCP Family Medicine; Visit Provider Internal Medicine Cardiovascular Disease
DX: I48.91 Unspecified atrial fibrillation (principal); Z79.899 Other long term (current) drug therapy
CPT/HCPCS: 36415; 80053; 84443

== ENCOUNTER → 2022-03-26 14:42 | Outpatient (BNVA) | payer MEDICARE, SELFPAY | PROVIDERS: PCP Family Medicine; Referring Provider Family Medicine; Visit Provider Nurse Practitioner Adult Health | DX: G31.9 Degenerative disease of nervous system, unspecified (principal) | CPT/HCPCS: 99213 ==

== ENCOUNTER → 2022-04-06 11:01 | Outpatient (BNVA) | payer MEDICARE, SELFPAY | PROVIDERS: PCP Family Medicine; Referring Provider Family Medicine; Visit Provider Internal Medicine Cardiovascular Disease | DX: I48.92 Unspecified atrial flutter (principal); I48.0 Paroxysmal atrial fibrillation | CPT/HCPCS: 99213 ==

== ENCOUNTER → 2022-09-25 14:11 | Outpatient (BNVA) | payer MEDICARE, SELFPAY | PROVIDERS: PCP Family Medicine; Referring Provider Family Medicine; Visit Provider Nurse Practitioner Adult Health | DX: R41.89 Other symptoms and signs involving cognitive functions and awareness (principal); G31.9 Degenerative disease of nervous system, unspecified; G47.61 Periodic limb movement disorder | CPT/HCPCS: 99213 ==

== ENCOUNTER → 2023-01-17 10:07 | Outpatient (BNVA) | payer MEDICARE, SELFPAY | PROVIDERS: PCP Family Medicine; Referring Provider Family Medicine; Visit Provider Nurse Practitioner Adult Health | DX: R29.898 Other symptoms and signs involving the musculoskeletal system (principal); M24.551 Contracture, right hip | CPT/HCPCS: 99214 ==

== ENCOUNTER → 2023-02-26 02:40 | Outpatient (CLI) | payer MEDICARE, SELFPAY ==
--- NOTE | 2023-02-26 14:00 | DI.RAD_ITS ---
Exam(s) XR HIP RT COMPLETE AP PELVIS EXAM: XR HIP RT COMPLETE AP PELVIS CLINICAL HISTORY: RT HIP PAIN, M25.551. TECHNIQUE: 2D digital imaging was performed of the right hip. Three images were obtained. AP pelvis and lateral right hip views were obtained. COMPARISON: No exams were available for comparison FINDINGS: BONES: No acute fracture is present. No bony destructive lesion is seen. JOINTS: No dislocation present. There are marked degenerative changes seen in the right hip with loss of the superior joint space and osteophytes on the acetabulum and the femoral head. More mild degen erative changes are seen in the left hip. The sacroiliac joints show mild degenerative changes. The symphysis pubis is unremarkable. SOFT TISSUE: Atherosclerosis is present. IMPRESSION: Marked degenerative changes of the right hip. DATA REPOSITORY: RADIATION DOSE DELIVERED:
== END ==
PROVIDERS: PCP Family Medicine; Visit Provider Family Medicine
DX: M16.11 Unilateral primary osteoarthritis, right hip (principal)
CPT/HCPCS: 73502

== ENCOUNTER 2023-03-26 02:32 | Outpatient (CLI) | payer MEDICARE, SELFPAY ==
[2023-03-26 16:13] LABS: Anion Gap 7.4 mmol/L (3-11); BUN 26 mg/dL (7-18); CO2 26.6 mmol/L (21.0-32.0); CREATININE 1.1 mg/dL (0.70-1.30); Calcium 8.6 mg/dL (8.5-10.1); Chloride 107 mmol/L (98-107); Estimated GFR 67.02 (mL/min/1.73m2); Glucose 102 mg/dL (74-106); Potassium 4.3 mmol/L (3.5-5.1); Sodium 141 mmol/L (136-145)
== END 2023-03-26 02:33 | disposition home or self-care (01) ==
PROVIDERS: PCP Family Medicine; Visit Provider Nurse Practitioner Family
DX: M25.551 Pain in right hip (principal); M16.11 Unilateral primary osteoarthritis, right hip; Z79.899 Other long term (current) drug therapy; R26.89 Other abnormalities of gait and mobility
CPT/HCPCS: 36415; 80048

== ENCOUNTER → 2023-04-29 10:55 | Outpatient (BNVA) | payer MEDICARE, SELFPAY | PROVIDERS: PCP Family Medicine; Referring Provider Family Medicine; Visit Provider Student in an Organized Health Care Education/Training Program | DX: M16.11 Unilateral primary osteoarthritis, right hip (principal); M76.31 Iliotibial band syndrome, right leg | CPT/HCPCS: 99214 ==

== ENCOUNTER → 2023-06-24 08:21 | Outpatient (BNVA) | payer MEDICARE, SELFPAY | PROVIDERS: PCP Family Medicine; Referring Provider Family Medicine; Visit Provider Student in an Organized Health Care Education/Training Program | DX: M76.31 Iliotibial band syndrome, right leg (principal); M16.11 Unilateral primary osteoarthritis, right hip | CPT/HCPCS: 20611; J1040 ==

== ENCOUNTER 2023-07-12 11:33 | Outpatient (CLI) | payer MEDICARE, SELFPAY ==
--- NOTE | 2023-07-12 10:00 | DI.RAD_ITS ---
Exam(s) XR LUMBAR SPINE COMPLETE EXAM: XR LUMBAR SPINE COMPLETE CLINICAL HISTORY: right leg weakness. TECHNIQUE: 2D digital imaging was performed. COMPARISON: CR XR DEXA BONE DENSITY W/WO FIORDALIZA from 06/22/2021 FINDINGS: Five views. No evidence of acute fracture, listhesis, nor pars defects. Mild wedging of L1 vertebral body is unc hanged from DEXA scan preliminary review of June 2021. Disc spaces exhibit normal height. Anterior osteophytes at L3-4 level have increased in size from 2021. Advanced facet arthropathy noted at L5-S1 level and moderate facet arthropathy L4-5. No significant scoliosis. Sacroiliac joints appear unremarkable. IMPRESSION: Facet arthropathy as described above. No acute fractures. No disc space narrowing. No osseous lesions. DATA REPOSITORY: RADIATION DOSE DELIVERED:
== END 2023-07-12 11:34 | disposition home or self-care (01) ==
LOC: DIORS 11:33
PROVIDERS: PCP Family Medicine; Referring Provider Family Medicine; Visit Provider Student in an Organized Health Care Education/Training Program
DX: M76.31 Iliotibial band syndrome, right leg; M16.11 Unilateral primary osteoarthritis, right hip; M47.816 Spondylosis without myelopathy or radiculopathy, lumbar region
CPT/HCPCS: 99214; 72110

== ENCOUNTER 2023-07-24 11:14 | Emergency (ER) | payer MEDICARE, SELFPAY ==
[2023-07-24] VITALS (8 sets, daily range): BP systolic 121–128; BP diastolic 51–52; PULSE 53–59; RESP 13–21; TEMP 36.9; O2SAT 93–95
--- NOTE | 2023-07-24 11:00 | RT.EKG_ITS ---
APPROVED REPORT Exam: Resting ECG Reason for Exam: syncope Patient Location: E HR:54 bpm ECG Measurements Heart Rate 54 AXIS DC 179 P 29 QRSd 105 QRS -1 QT 436 T 89 QTc 414 Conclusion Sinus bradycardia...rate< 60 Nonspecific T abnormalities, lateral leads...T <-0.10mV, I aVL V5 V6
--- NOTE | 2023-07-24 11:30 | DI.RAD_ITS ---
Exam(s) XR CHEST 2V PA LATERAL EXAM: XR CHEST 2V PA LATERAL CLINICAL HISTORY: cough TECHNIQUE: 2D digital imaging was performed. COMPARISON: No exams were available for comparison FINDINGS: HEART: Normal size. Aorta: Not dilated. PULMONARY VASCULATURE: Normal. LUNGS: Clear. PLEURAL SPACE: No pleural effusion or pneumothorax. BONE:Unremarkable for age. Old left rib fracture. Soft tissues: Unremarkable. IMPRESSION: No acute abnormality. DATA REPOSITORY: RADIATION DOSE DELIVERED:
[2023-07-24 11:31] LABS: Abs Immature Grans 0.02 10^3/uL (0.0-0.06); Absolute Basophil Count 0.07 10^3/uL (0.0-0.2); Absolute Eosinophil Count 0.03 10^3/uL (0.0-0.7); Absolute Lymphocyte Count 0.37 10^3/uL (1.2-3.4); Absolute Monocyte Count 0.89 10^3/uL (0.1-0.8); Absolute Neutrophil Count 5.69 10^3/uL (1.2-6.7); Eosinophils % 0.4; HCT 42.1 % (40.0-50.0); HGB 13.9 g/dL (13.5-17.5); Immature Grans % 0.3; Lymphocytes % 5.2; MCH 30.8 pg (27.0-33.0); MCV 93 fL (80-95); MPV 8.6 fL (8.0-11.0); Monocytes % 12.6; Neutrophils % 80.5; Platelet Count 188 10^3/uL (130-400); RBC 4.52 10^6/uL (4.36-5.78); RDW 13.2 % (11.8-14.1); RDW-SD 45.8 fL; WBC 7.07 10^3/uL (4.4-10.8)
--- NOTE | 2023-07-24 11:32 | ED.GENADUL_ITS ---
HPI General Mode of arrival: EMS . Date/Time Provider Initiated Documentation: 07/24/23 11:16 . Limitations to Documentation: no limitations . Information obtained by: patient and family . History of Present Illness 83 year old M presents to the emergency department with the chief complaint of passed out, described as moderate, Patient started experiencing this hour(s) (1) and it has been now resolved. No relieving factors improve symptom(s), No exacerbating factors reported . Patient notes cough and fever/chills; denies chest pain. Patient did receive the following treatments prior to arrival, none Related Data Home Medications Medication Instructions Recorded Confirmed denosumab 60 mg/mL subcutaneous 60 mg subcut [id number] 02/26/20 07/24/23 syringe (Prolia) mecobalamin (vitamin B12) 1,000 1,000 mcg PO DAILY 06/07/20 07/24/23 mcg chewable tablet fluticasone propionate 50 2 spray intranasal DAILY PRN 04/06/21 07/24/23 mcg/actuation nasal spray,suspension (Allergy Relief (fluticasone)) rivaroxaban 20 mg tablet (Xarelto) 20 mg PO DAILY 04/06/21 07/24/23 cholecalciferol (vitamin D3) 50 50 mcg PO DAILY 07/17/21 07/24/23 mcg (2,000 unit) capsule clotrimazole-betamethasone 1 1 applic topical DAILY 07/17/21 07/24/23 %-0.05 % topical cream metoprolol tartrate 25 mg tablet 12.5 mg PO DAILY PRN 07/19/21 07/24/23 amiodarone 200 mg tablet 200 mg PO DAILY #90 tabs 08/08/21 07/24/23 calcium carbonate 200 mg calcium 200 mg PO TID #90 tabs 08/08/21 07/24/23 (500 mg) chewable tablet ([employer]([facility])) dupilumab 300 mg/2 mL subcutaneous 300 mg subcut Q2W 01/17/23 07/24/23 pen injector (Dupixent) meloxicam 7.5 mg tablet 7.5 mg PO DAILY 03/04/23 07/24/23 Previous Rx's Medication Instructions Recorded amiodarone 200 mg tablet 200 mg PO DAILY #90 tabs 08/08/21 calcium carbonate 200 mg calcium 200 mg PO TID #90 tabs 08/08/21 (500 mg) chewable tablet ([employer]) Allergies Allergy/AdvReac Type Severity Reaction Status Date / Time cephalexin [Cephalexin] AdvReac Intermediate Diarrhea Verified 07/24/23 12:00 General Stated Complaint: [id number] LYN: 3 Review of Systems All systems reviewed & are unremarkable except as noted in HPI and below Constitutional Constitutional: Denies chills and Denies fever(s) Cardiovascular Cardiovascular: Denies chest pain and Denies dyspnea Respiratory Respiratory: Denies dyspnea Gastrointestinal Gastrointestinal: Denies abdominal pain, Denies nausea and Denies vomiting Musculoskeletal Musculoskeletal: Denies joint swelling Exam Const General: no acute distress Orientation: alert HENMT Head: normal to inspection Ears: external ears normal General nose exam: external nose normal Mouth: moist mucous membranes Eyes General: appearance normal, both eyes and all related structures Neck Neck: normal visual inspection Resp Effort & Inspection: normal respiratory effort and able to speak in complete sentences Auscultation: clear to auscultation bilaterally Cardio Jugular venous pressure: no JVD Rate: regular rate Heart Sounds: no murmurs GI Palpation: soft and nontender Skin General skin exam: no rashes or lesions noted Neuro General: patient alert and patient oriented x3 Extrem General: normal to inspection Psych Mental Status: mental status grossly normal Course Vital Signs Vital signs: Vital Signs Pulse 54 L 07/24/23 11:17 Respiratory Rate 21 07/24/23 11:17 Blood Pressure 121/52 L 07/24/23 11:17 Pulse Oximetry 93 07/24/23 11:17 Temperature 36.9 C 07/24/23 11:24 Temperature Source Oral 07/24/23 11:24 Pulse 54 L 07/24/23 11:17 Respiratory Rate 21 07/24/23 11:24 Respiratory Effort Non-Labored 07/24/23 11:24 Respiratory Depth Normal 07/24/23 11:24 Respiratory Pattern Normal 07/24/23 11:24 Blood Pressure 121/52 L 07/24/23 11:17 Blood Pressure Position Supine 07/24/23 11:17 Pulse Oximetry 93 07/24/23 11:17 Oxygen Delivery Method Room Air 07/24/23 11:17 Oxygen Flow Rate 0 07/24/23 11:17 Pain Level 0 07/24/23 11:17 Lab/Test Results Lab/Test Results: 07/24/23 11:21 Blood Blood Culture - Pending 07/24/23 11:21 Blood Blood Culture - Pending Laboratory Tests Range/Units 07/24/23 11:21 WBC (4.4-10.8) 10^3/uL 7.07 RBC (4.36-5.78) 10^6/uL 4.52 Hgb (13.5-17.5) g/dL 13.9 Hct (40.0-50.0) % 42.1 MCV (80-95) fL 93 MCH (27.0-33.0) pg 30.8 MCHC (32.0-36.0) % 33.0 RDW (11.8-14.1) % 13.2 Plt Count (130-400) 10^3/uL 188 MPV (8.0-11.0) fL 8.6 Immature Gran % 0.3 Neutrophils % 80.5 Lymphocytes % 5.2 Monocytes % 12.6 Eosinophils % 0.4 Basophils % 1.0 Nucleated RBC % (0.0-0.3) % 0.0 Absolute Neutrophils (1.2-6.7) 10^3/uL 5.69 Absolute Lymphocytes (1.2-3.4) 10^3/uL 0.37 L Absolute Monocytes (0.1-0.8) 10^3/uL 0.89 H Absolute Eosinophils (0.0-0.7) 10^3/uL 0.03 Absolute Basophils (0.0-0.2) 10^3/uL 0.07 NT-Pro-B Natriuret Pep Cancelled Medical Decision Making 83-year-old male with a history of A-fib on anticoagulation, cognitive decline, who comes in after he had an episode where he passed out per his . The last day he had a cough and subjective fevers at home, today he is feeling generally weak and he was sitting in a chair today when his said he lost color in his face and passed out for few minutes. He is alert and oriented on arrival answering questions appropriately in no distress. He has no deficits on exam, on bedside ultrasound appears to have normal EF. No pericardial effusion. No leg swelling, no calf tenderness. Given his cough with reported subjective fevers at home we will proceed with CBC CMP procalcitonin Fluvid and chest x-ray and given he had a syncope as well will obtain EKG troponin and proBNP. He has no evidence of DVT on exam, no pleuritic chest pain and already is on anti coagulation so doubt PE. Patient's proBNP mildly elevated, no pulmonary edema on x-ray. He is COVID- positive. Negative procalcitonin. He is stable alert and overall well appearing. He is on amiodarone and Xarelto which interact with Paxlovid, he is vaccinated for COVID so do not feel stopping these medications for Paxlovid is indicated. Room air saturation is 96% so do not feel he needs to be hospitalized. He is stable for discharge, advised to follow-up with his primary care in a week if not better and return precautions given Differential Diagnosis Differential Diagnosis: COVID, flu, pneumonia Imaging Data Radiologic Study: Attestation: I personally reviewed and interpreted this imaging study as follows: Imaging: X-Ray Radiologist's impression: No acute findings Lab Data Lab results reviewed: Yes I reviewed the patient's lab results. ECG Data Attestation: I personally reviewed and interpreted this ECG (s) as follows: Prior ECG tracings: available for review Interpretation: Sinus bradycardia, rate of 54, [place] 179, no STEMI Quality:SDOH Health Related Social Needs: No Data to Display PFSH All Active Problems (Updated 07/24/23 @ 13:02 by Jefry Espinoza MD) Cough (Acute) Fatigue (Acute) COVID (Acute) Lumbar facet arthropathy (Acute) Iliotibial band syndrome, right leg (Acute) Arthritis of right hip (Chronic) 80 mg Depo-Medrol injection: 06/24/2023 Right hip flexor tightness (Acute) Periodic limb movement disorder (Acute) Advance care planning (Acute) Leg weakness, bilateral (Acute) Impaired instrumental activities of daily living (Acute) Right leg weakness (Acute) Babinski reflex (Acute) Neurodegenerative disorder (Acute) Dysphagia (Chronic) cannot swallow large pills All medications reviewed (Acute) On amiodarone therapy (Acute) Atrial flutter (Acute) PVC (premature ventricular contraction) (Acute) Atrial dilatation, bilateral (Chronic) mild per ECHO 2020 Lightheadedness (Acute) when bradycardic [place]amminess (Acute) when bradycardic Movement disorder (Chronic) [facility] neurology evaluation Fracture of C6 vertebra, closed (Acute) Blunt head trauma (Acute) Paroxysmal atrial fibrillation (Acute) new dx 2020 Chronic anticoagulation (Acute) apixaban as of February 2021 BPH associated with nocturia (Acute) Walker as ambulation aid (Acute) Short-term memory loss (Acute) Executive function deficit (Acute) Health care proxy on file (Chronic) Shelia Chamberlain, his DNI (do not intubate) (Acute) DNR (do not resuscitate) (Acute) POLST (Physician Orders for Life-Sustaining Treatment) (Acute) History of carpal tunnel surgery of left wrist (Acute) Goals of care, counseling/discussion (Acute) Hypophonia (Acute) Palliative care patient (Acute) Fatigue (Acute) Cubital tunnel syndrome, bilateral (Acute) Bilateral carpal tunnel syndrome (Acute) Peripheral neuropathy (Acute) Hand paresthesia (Acute) Camptocormia (Chronic) Cognitive impairment (Chronic) Tubular adenoma (Acute ~03/2020) 2 tubular adenomas, repeat colo PRN (age) Dr. Samantha Yeager Bullous pemphigoid (Chronic) Kyphosis (Acute) Medical History A-fib Erectile dysfunction Anemia Hepatitis C Atrial fibrillation newly recognized February 2021 Travel advice encounter around COVID-19, international travel Onychomycosis of toenail Vision changes Nocturia Chronic rhinitis Polyneuropathy Actinic keratosis Candidal intertrigo Gait abnormality Mild memory disturbance Osteoporosis Family History Brother Advanced age brother 92 yo 2020 Dementia Brother , age 86 from unknown neuro disease Neurodegenerative disorder Son No problems noted. Son No problems noted. 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 Pets and animals: Yes Pets and animals: cat(s) Do you think of yourself as: straight/heterosexual Current gender identity: male What is your relationship status?: How often do you talk on the phone with friends or family?: three or more times per week How often do you get together with friends or relatives?: twice per week How often do you attend jainism or protestant services?: 4 or more times per year Do you belong to any clubs or organized social groups?: yes Panel score (0-1 are the most socially isolated patients): 4 What type of physical activity do you participate in: assisted ambulation Duration: 30-45 minutes/day Frequency: 5-6 times per week Laurence/Rastafari: Nguyen Special laurence needs: No Seatbelt use: always Working smoke detector in home: Yes Fire extinguisher in home: Yes Firearms in home: No Do you feel safe at home: Yes Do you feel safe in your relationship?: Yes Additional Social history: Chandu lives with his , Shelia, who is 19 years his marie. They have 2 sons, Donald and Jewel. Donald lives in [place] and Jewel lives in [place]. Chandu has always been physically active. 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 It is very difficult for him to walk on his own. Does much better with walker. Unclear cause of his cognitive decline. Brother also had dementia and movement disorder NOS. He and Shelia recently renovated their house for Chandu to have a first floor bedroom and handicap access BR. Strong support in his medical decision making from , sons, sister in law and family friend, Yane Estrella RN. Shelia injured shoulder and required extensive surgery spring 2021. Sons recently visited sequentially to help. PAWSS Have you Been Recently Intoxicated or Drunk Within the Last 30 days?: No Have you Ever Experienced Previous Episodes of Alcohol Withdrawal?: No Have you ever Experienced Withdrawal Seizures?: No Have you ever Experienced Delirium Tremens(DT)s?: No Have you ever undergone Alcohol Rehabilitation Treatment (i.e, inpt ot outpatient treatment programs)?: No Have you ever Experienced Blackouts?: No Have you ever Combined Alcohol with other Downers within the last 90 days?: No Have you ever Combined Alcohol with any other Substance of Abuse during the last 90 days?: No Positive Blood Alcohol level on Presentation? [PCS.BAL]: No Evidence of Increased Autonomic Activity (i.e. HR>120, tremor, sweating, agitation, nausea)?: No Result: 0 Discharge Plan Disposition Patient Disposition: Home Condition: Stable Discharge Details Clinical Impression: COVID, Fatigue, Cough Primary Care Provider: Jenny York ED Provider: Jefry Espinoza Home Meds and New Rx's Prescriptions: Continued mecobalamin (vitamin B12) 1,000 mcg tablet,chewable 1,000 mcg PO DAILY cholecalciferol (vitamin D3) 50 mcg (2,000 unit) capsule 50 mcg PO DAILY calcium carbonate [[employer]] 200 mg calcium (500 mg) tablet,chewable 200 mg PO TID Qty: 90 0RF amiodarone 200 mg tablet 200 mg PO DAILY Qty: 90 3RF meloxicam 7.5 mg tablet 7.5 mg PO DAILY fluticasone propionate [Allergy Relief (fluticasone)] 50 mcg/actuation spray,suspension 2 spray intranasal DAILY PRN Rx Instructions: administer into each nostril Xarelto 20 mg tablet 20 mg PO DAILY Rx Instructions: must administer with evening meal metoprolol tartrate 25 mg tablet 12.5 mg PO DAILY PRN Dupixent Pen 300 mg/2 mL pen injector 300 mg subcut Q2W Prolia 60 mg/mL syringe 60 mg subcut [id number] clotrimazole-betamethasone 1-0.05 % cream 1 applic topical DAILY Discharge Instructions Instructions: COVID-19 (Coronavirus Disease 2019) (ED) Additional Instructions: You are positive for COVID. Due to interactions with your medications Paxlovid is not being started If not better within a week follow-up with your primary care provider If you feel more ill, have difficulty breathing, or start having persistent vomiting return to the emergency department
[2023-07-24 11:43] LABS: PTT Activated 33.9 sec (23.6-32.8); Prothrombin Time 13.2 sec (9.1-11.1)
[2023-07-24 11:44] LABS: INR 1.3 (0.9-1.1)
[2023-07-24 11:55] LABS: ALT 21 U/L (16-63); AST 25 U/L (15-37); Albumin 3.9 g/dL (3.4-5.0); Alkaline Phosphatase 88 U/L (46-116); Anion Gap 11.2 mmol/L (3-11); BUN 25 mg/dL (7-18); Bilirubin, Total 0.5 mg/dL (0.2-1.0); CO2 26.8 mmol/L (21.0-32.0); CREATININE 1.1 mg/dL (0.70-1.30); Calcium 8.8 mg/dL (8.5-10.1); Chloride 103 mmol/L (98-107); Estimated GFR 66.61 (mL/min/1.73m2); Glucose 150 mg/dL (74-106); Magnesium 2.2 mg/dL (1.8-2.4); NT-proBNP 918 pg/mL (<300); Sodium 141 mmol/L (136-145); TSH (W/Ref FT4) 2.21 uIU/mL (0.36-3.74); Total Protein 7.7 g/dL (6.4-8.2); Troponin I < 50 ng/L (< or =60)
[2023-07-24 12:06] LABS: Procalcitonin < 0.1 ng/mL
[2023-07-24 12:17] LABS: Influenza A PCR Negative (Negative); Influenza B PCR Negative (Negative); RSV PCR Negative (Negative)
[2023-07-24 12:21] LABS: Source Nasopharynx
[2023-07-24 12:22] LABS: COVID-19 PCR Positive (Negative)
== END 2023-07-24 13:40 | disposition home or self-care (01) ==
PROVIDERS: Emergency Provider Emergency Medicine; PCP Family Medicine
DX: U07.1 COVID-19 (principal); R53.81 Other malaise; R05.9 Cough, unspecified; I48.91 Unspecified atrial fibrillation; Z79.01 Long term (current) use of anticoagulants; Z11.52 Encounter for screening for COVID-19
CPT/HCPCS: 36415; 80053; 84145; 87040; 87637; 93005; 99285; 71046; 83735; 83880; 84443; 84484; 85025; 85610; 85730; 93010; 99284

== ENCOUNTER → 2023-08-07 01:23 | Outpatient (CLI) | payer MEDICARE, SELFPAY ==
--- NOTE | 2023-08-07 07:00 | DI.MRI_ITS ---
Exam(s) MR LUMBAR SPINE WO EXAM: MR LUMBAR SPINE WO CLINICAL HISTORY: bilat leg weakness,lumbar facet arthropathy,m47.816,[id number]. TECHNIQUE: Multiplanar multisequence MRI of the Lumbar spine was performed. COMPARISON: CR XR LUMBAR SPINE COMPLETE from 07/12/2023 FINDINGS: Bones: The last intervertebral disc space is designated the L5/S1 level for the numbering purpose of this examination. There is an old anterior wedging deformity of the T12 vertebral body. Small endp late osteophytes are seen at multiple levels of the lumbar spine. Alignment is satisfactory. The sig nal characteristics are unremarkable. Cord: The conus tip ends at the L1 level. It is of normal size and signal intensity. T12-L1: No disc herniations or bulges are present. No central spinal canal or neural foraminal stenos is. L1-2: There is a mild diffuse disc bulge. No central spinal canal or neural foraminal stenosis. L2-3: No disc herniations or bulges are present. No central spinal canal or neural foraminal stenosis . L3-4: There is a diffuse disc bulge. There are mild degenerative changes of the facets. There is mi ld narrowing of the central spinal canal which results. There is [id number] bilateral neural f oraminal stenosis. L4-5: There is a diffuse disc bulge. There are hypertrophic changes of the facets and ligamentum fla vum. The findings result in [id number] central spinal canal stenosis. There is moderate bilat eral neural foraminal stenosis. L5-S1: No disc herniations or bulges are present. There are degenerative changes of the facets. No s ignificant central spinal canal stenosis is present. There is [id number] bilateral neural fora cecilia stenosis. Soft tissues: The paraspinal soft tissues are unremarkable. IMPRESSION: Multilevel degenerative changes in the lumbar spine. The findings are most marked at L4-L5 where the re is [id number] central spinal canal stenosis and moderate bilateral neural foraminal stenosis . Please see the above discussion for complete details. DATA REPOSITORY:
== END ==
PROVIDERS: PCP Family Medicine; Visit Provider Student in an Organized Health Care Education/Training Program
DX: R29.898 Other symptoms and signs involving the musculoskeletal system (principal); M47.816 Spondylosis without myelopathy or radiculopathy, lumbar region
CPT/HCPCS: 72148

== ENCOUNTER 2023-09-10 04:51 | Outpatient (CLI) | payer MEDICARE, SELFPAY ==
[2023-09-10 16:21] LABS: BUN 33 mg/dL (7-18); CREATININE 1.1 mg/dL (0.70-1.30); Calcium 8.6 mg/dL (8.5-10.1); Chloride 108 mmol/L (98-107); Estimated GFR 66.61 (mL/min/1.73m2); Glucose 138 mg/dL (74-106); Sodium 144 mmol/L (136-145)
== END 2023-09-10 04:52 | disposition home or self-care (01) ==
PROVIDERS: PCP Family Medicine; Visit Provider Internal Medicine Rheumatology
DX: M81.0 Age-related osteoporosis without current pathological fracture (principal); Z79.899 Other long term (current) drug therapy
CPT/HCPCS: 36415; 80048

== ENCOUNTER → 2023-09-12 10:09 | Outpatient (BNVA) | payer MEDICARE, SELFPAY | PROVIDERS: PCP Family Medicine; Referring Provider Family Medicine; Visit Provider Nurse Practitioner Adult Health | DX: R41.89 Other symptoms and signs involving cognitive functions and awareness (principal) | CPT/HCPCS: 99215 ==

== ENCOUNTER 2023-11-08 07:30 | Day surgery (SDC) | payer MEDICARE, SELFPAY ==
[2023-11-08 07:30] VITALS: BP 159/76; PULSE 48; RESP 15; TEMP 36.1; O2SAT 96
--- NOTE | 2023-11-08 08:13 | W.ANESPRE ---
General Info Date of Service Date Performed: 11/08/23 Height: 6 ft Weight: 79.379 kg Body Mass Index (BMI): 23.7 Surgical Procedure: Operation Date: 11/08/23 09:40 Proposed Procedure Side Surgeon p Cataract Extraction with IOL Implant Left Fernando Mendoza MD Meds Allergies and Home Medications Allergies Allergy/AdvReac Type Severity Reaction Status Date / Time cephalexin [Cephalexin] AdvReac Intermediate Diarrhea Verified 11/08/23 07:56 Home Medication Medication Instructions Recorded denosumab 60 mg/mL subcutaneous 60 mg subcut [id number] 02/26/20 syringe (Prolia) mecobalamin (vitamin B12) 1,000 1,000 mcg PO DAILY 06/07/20 mcg chewable tablet fluticasone propionate 50 2 spray intranasal DAILY PRN 04/06/21 mcg/actuation nasal spray,suspension (Allergy Relief (fluticasone)) rivaroxaban 20 mg tablet (Xarelto) 20 mg PO HS 04/06/21 cholecalciferol (vitamin D3) 50 50 mcg PO DAILY 07/17/21 mcg (2,000 unit) capsule metoprolol tartrate 25 mg tablet 12.5 mg PO DAILY PRN 07/19/21 amiodarone 200 mg tablet 200 mg PO DAILY #90 tabs 08/08/21 calcium carbonate (Tums Freshers) 200 mg PO TID #90 tabs 08/08/21 dupilumab 300 mg/2 mL subcutaneous 300 mg subcut Q2W 01/17/23 pen injector (Dupixent) meloxicam 7.5 mg tablet 7.5 mg PO HS 03/04/23 memantine 5 mg tablet 5 mg PO .COMPLEX #120 tabs 09/12/23 Current Visit Medications: Current Medications Generic Name Dose Route Start Last Admin Trade Name Freq PRN Reason Stop Dose Admin Acetaminophen 1,000 mg 11/08/23 06:00 Acetaminophen 500 Mg Tab PO 12/08/23 05:59 Q4H PRN PRN Balanced Salt Solution 500 ml 11/08/23 06:00 Balanced Salt Soln.-Plus 500 Ml Bag OP 12/08/23 05:59 DIRECTED [facility] Miscellaneous Medication 0 ml 11/08/23 06:00 Prednisolone 1%, Moxifloxacin 0.5%, Bromfenac 0.09% 5ml Btl OS 12/08/23 05:59 DIRECTED [facility] Miscellaneous Medication 0 ml 11/08/23 06:00 11/08/23 08:10 Tropicam./Phenyleph. (1/2.5%) 10 Ml Btl OS 12/08/23 05:59 1 drp DIRECTED [facility] Administration Tetracaine HCl 0 ml 11/08/23 06:00 Tetracaine 0.5% 4 Ml Btl OS 12/08/23 05:59 DIRECTED [facility] PFSH Active Problems Active Problems: Problem Status Onset Code Cortical age-related cataract, left eye H25.012 Nuclear age-related cataract, left eye H25.12 COVID U07.1 Lumbar facet arthropathy M47.816 Iliotibial band syndrome, right leg M76.31 Arthritis of right hip M16.11 Right hip flexor tightness M24.551 Periodic limb movement disorder G47.61 Advance care planning Z71.89 Leg weakness, bilateral R29.898 Impaired instrumental activities of daily living Z78.9 Right leg weakness R29.898 Babinski reflex R29.2 Neurodegenerative disorder G31.9 Dysphagia R13.10 All medications reviewed On amiodarone therapy Z79.899 Atrial flutter I48.92 PVC (premature ventricular contraction) I49.3 Atrial dilatation, bilateral I51.7 Lightheadedness R42 Clamminess R23.1 Movement disorder G25.9 Fracture of C6 vertebra, closed S12.500A Blunt head trauma S09.8XXA Paroxysmal atrial fibrillation I48.0 Chronic anticoagulation Z79.01 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, 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.1 Walker as ambulation aid Z99.89 Short-term memory loss R41.3 Executive function deficit R41.844 Health care proxy on file DNI (do not intubate) Z78.9 DNR (do not resuscitate) Z66 POLST (Physician Orders for Life-Sustaining Treatment) Z78.9 History of carpal tunnel surgery of left wrist Z98.890 Goals of care, counseling/discussion Z71.89 Hypophonia R49.8 Palliative care patient Z51.5 Fatigue R53.83 Cubital tunnel syndrome, bilateral 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 denies Atrial fibrillation newly recognized February 2021 Travel advice encounter around COVID-19, international travel Onychomycosis of toenail Vision changes Nocturia Chronic rhinitis Polyneuropathy Actinic keratosis Candidal intertrigo Gait abnormality Mild memory disturbance Osteoporosis Surgical History Surgical History Hx of appendectomy Tobacco Smoking/Tobacco Use Status: Never Alcohol Alcohol Intake: current Alcohol intake frequency: a few times a month Alcohol type: wine Substance Use Substance use: Never Substance use type: does not use Vital Signs and Lab Results Lab Results Blood Type / Crossmatch: No Data to Display Complete Blood Count: No Data to Display Complete Metabolic Panel: No Data to Display Liver Function Panel: No Data to Display Coagulation Panel: No Data to Display Cardiac Panel: No Data to Display Arterial Blood Gas: No Data to Display Venous Blood Gas: No Data to Display Pancreas Panel: No Data to Display Thyroid Panel: No Data to Display Infectious Disease: No Data to Display Blood Cultures: No Data to Display Toxicology Panel: No Data to Display Imaging and Studies Imaging and Studies Study information below may be from another EMR and interpreted by another provider. Please see original notes in EMR for more complete details. EKG Summary: EKG PATIENT NAME: Aj Chamberlain UNIT #: [id number] ORDERING PROVIDER: Jefry Pierson M.D. PRIMARY CARE PROVIDER: JENNY COLEMAN MD DATE/TIME OF SERVICE: 07/24/23 1120 : 1940 PERFORMING LOCATION: ER APPROVED REPORT Exam: Resting ECG Reason for Exam: syncope Patient Location: E HR:54 bpm ECG Measurements Heart Rate 54 AXIS VT 179 P 29 QRSd 105 QRS -1 QT 436 T89 QTc 414 Conclusion Sinus bradycardia...rate< 60 Nonspecific T abnormalities, lateral leads...T <-0.10mV, I aVL V5 V6 <Electronically signed by JEFRY PIERSON MD in OV> E-Sign Date: 07/24/23 E-Sign Time: 1134 ADDENDUM APPROVED REPORT Exam: Resting ECG Reason for Exam: syncope Patient Location: E HR:54 bpm ECG Measurements Heart Rate 54 AXIS VT 179 P 29 QRSd 105 QRS -1 QT 436 T89 QTc 414 Conclusion Sinus bradycardia...rate< 60 Nonspecific T abnormalities, lateral leads...T <-0.10mV, I aVL V5 V6 I have reviewed and I agree with the emergency room physician's ECG interpretation. Electronically signed by: <Electronically signed by Priscilla Oshea M.D. in OV> 07/25/23 0901 Cosigned by: Echocardiogram Summary: Patient Name: Aj Chamberlain Unit #: [id number] Loc: Ordering Provider: Jenny Coleman M.D. Status: [facility] Primary Care Provider: Jenny Coleman M.D. Date of Exam: 03/29/21 Sex: M Admission Date: 03/29/21 : 1940 Age: 80 APPROVED REPORT EXAM: Comprehensive 2D, Doppler, and color-flow Echocardiogram Patient Location: Out-Patient Radiation Therapist: Grace Gregory RDCS (AE) Indications: Atrial Fibrillation Other Information Study Quality: Adequate Conclusion Normal left ventricular wall thickness and chamber size. Estimated ejection fraction is 55 to 60%. There are no segmental wall motion abnormalities Normal right ventricular size and systolic function Both atria are mildly dilated The aortic valve is trileaflet with trace regurgitation Mildly thickened mitral leaflets with mild regurgitation Normal tricuspid valve with trace regurgitation. Normal estimated right ventricular systolic pressure, 23 mmHg Dilated ascending aorta measuring 4 cm Wall motion Left Ventricle The left ventricle is normal size. The left ventricular systolic function is normal. The left ventricular ejection fraction is within the normal range. There is normal left ventricular wall thickness. There is normal LV segmental wall motion. There is no ventricular septal defect visualized. LVEF is 58%. Right Ventricle The right ventricle is normal size. The right ventricular systolic function is normal. The RVSP is 23.2 mmHg. Atria Left atrium is mildly dilated. Right atrium is mildly dilated. The interatrial septum is intact with no evidence for an atrial septal defect. Aortic Valve The aortic valve is normal in structure. There is no aortic valvular stenosis. Trace aortic regurgitation. Mitral Valve Mitral valve leaflets are mildly thickened. No evidence of mitral valve stenosis. Mild mitral regurgitation. Tricuspid Valve The tricuspid valve is normal in structure. There is no tricuspid valve stenosis. Trace tricuspid regurgitation. Pulmonic Valve The pulmonary valve is normal in structure. There is no pulmonic valvular stenosis. There is no pulmonic valvular regurgitation. Great Vessels The aortic root is normal in size. The ascending aorta is moderately dilated.4.0 cm Aortic arch is normal in caliber. IVC is normal in size and collapses >50% with inspiration. IVC is normal in size and collapses >50% with inspiration. Pericardium There is no pericardial effusion. 2D Dimensions IVSD d PLAX 1.04 cm M: 0.6-1.2LV Vol A2C d MOD 149.0 mL LVPW d PLAX 1.04 cm M: 0.6 - 1.2LV Vol A4C d MOD 154.0 mL LVID d PLAX 4.93 cm M: 4.2 - 5.8LA vol/ BSA A2C s A-L49.9 mL/m2 LVDs 3.40 cm M: 2.5 - 4.0LA vol/ BSA A4C s A-L28.8 mL/m2 Ao Root d 3.67 cm M: 3.1 - 3.7LA Vol/ BSA Biplane s A-L 39.6 mL/m2 RA Area A4C19.56 cm2LA Area A4C s MOD 19.80 cm2 RA Vol/ BSA A4C s A-L 30.9 mL/m2LA Area A2C s MOD 27.21 cm2 Ao Asc Diam d 4.08 cm M: 2.6 - 3.4LV EF A4C MOD 59.2 % LV EF Teichholz 58.1 %LV EF A2C MOD 58.9 % LVEF (Gibson's)57.91 % M: 52 - 72LV EF Biplane MOD 57.9 % LV Uzohmj476.13 mL M: 62 - 169QI70.80 mL LV Volume Index57.85 mL/m2 M: 34 - 74SV Index44.55 mL/m2 LV Vol Biplane MOD 153.3 mL FS30.70 % M-Mode TAPSE 2.92 cm (M/F) >1.7 LV Diastology MV E' medial0.073 (>0.07 m/s)E/A Ratio 0.9 LV E/e MED10.20 (<14)MV E Vmax 0.75 (0.4-1.3 m/s) MV E' lateral0.088 (>0.1 m/s)MV A Vmax 0.80 (0.4-1.3 m/s) LV E/e LAT8.50 (<14)MV E/A Ratio 0.92 MV E/E' medial 10.22 MV E/E' lateral8.52 Aortic Valve LVOT Area3.90 cm2AoV Area Vmax2.74 cm2 LVOT Vmax 0.89 m/sAoV Area/ BSA (Vmax)1.38 cm2/m2 LVOT Mean Ba.0.70 m/sAVA Mean Ba.2.50 cm2 LVOT Peak Grad 3.2 mmHgAVA Mean Ba. Index1.25 cm2/m2 LVOT Mean Grad 2.1 mmHgAR DT 2151 msec LVOT VTI0.217 mAR PHT 624 msec LVOT Diam s 2.20 cm AoV Vmax1.27 m/s Velocity Ratio 0.70 AoV Mean Ba.1.09 m/s AoV Peak Grad6.5 mmHg LVOT SV 84.63 mL AoV Mean Grad4.8 mmHg AoV VTI0.339 m AoV Area VTI2.50 cm2 AoV Area/ BSA (VTI)1.25 cm/m2 Mitral Valve MV DT 258 (160-240 msec)MR Vmax 5.23 m/s MV PHT75 msecMR VTI 1.712 m MV Area PHT 2.95 cm2MR Peak Grad 109.5 mmHg MV VTI 0.352 mMR Mean Grad 80.2 mmHg MV VTI Annulus 0.372 mMR PISA Radius 0.44 cm MV Area VTI 2.55 (4.0-6.0 cm2)MR EROA 0.08 cm2 MR Aliasing Velocity 0.35 m/s MR PISA 1.23 cm2 Pulmonary Valve PV Vmax 0.91 (0.5-1.5 m/s)RVOT Peak Gr.1.74 mmHg PV Peak Grad 3.3 mmHgRVOT Mean Gr.0.85 mmHg PV Mean Grad 1.7 mmHgRVOT VTI0.136 m PV VTI 0.199 mRVOT Vmax 0.66 m/s Tricuspid Valve TR Peak Grad 20.2 mmHgTR Vmax 2.25 m/s RA Pressure 3.00 mmHg RVSP (TR) 23.2 mmHg Ordered By: Jenny Coleman M.D. CC: Dictated By: Priscilla Oshea M.D. 03/29/21 1324 <Electronically signed by Priscilla Oshea M.D. in OV> 03/30/21 0832 Transcribed By: Priscilla Oshea MD This is privileged, confidential information intended only for the provider named. Any use or distribution by any person other than this provider is strictly prohibited. If you receive this report in error, please notify us immediately at [phone] and return the original report to us at the address above. Thank-you. Pulmonary Function Summary: Pulmonary Function Test PATIENT NAME: Aj Chamberlain UNIT #: [id number] ADMITTING PROVIDER: Paula Meneses M.D. PRIMARY CARE PROVIDER: JENNY COLEMAN MD DATE OF ADMIT: 11/13/21 : 1940 Date of service: 11/13/21 Time of Service: 15:06 Pulmonary Function Test Result Requesting Provider Orestes Godinez Indications: On amiodarone therapy - screening Interpretation Spirometry: There is no airflow limitation. There is no significant bronchodilator response. Lung Volumes: There are normal lung volumes Diffusion Capacity: There is a normal diffusion Airway Pressure: Normal airways resistance. Impression Normal PFT's Note: No prior PFT in system to compare Clinical Correlation therefore is recommended. cc: Dictated by: PAULA MENESES MD Dictated: 11/14/21 Time: 111 <Electronically signed by Paula Meneses M.D.> Date: 11/14/211117 Date: Date: Transcribed Date: 11/14/21 Transcribed Time: 1115 By: MARTIN Anesthesia Assessment and Plan Anesthesia History Personal History: No History of Anesthesia Complications Family History: No Family History of Anesthesia Complications Exercise Tolerance Exercise Tolerance: Metabolic Equivalents>4 Pertinent Negatives Pertinent Negatives: No Symptoms of GERD Cardiac & Pulmonary Exam Cardiac Exam: Normal S1/S2 Heart Sounds Pulmonary Exam: Clear Bilateral Breath Sounds Implantable Cardiac Device Does patient have a Pacemaker or an ICD?: No Airway Exam Known Difficult Airway: No Mallampati Class: 2 Mouth Opening: Normal (> 3cm) Thyromental Distance: Greater than 3 cm Neck Range of Motion: Full ROM Neck Circumference: Normal Teeth Condition: Normal Dentition ASA Classification ASA Score: ASA 3 Emergency Case?: No NPO Status NPO Status: NPO Clears >2 hours, Solids >8 hours Anesthesia Plan Resuscitation Status: DNR Maintained Throughout Perioperative Period Anesthesia Technique: MAC Anesthesia Airway Planned: Natural Airway Monitors Used: Standard Monitors
[2023-11-08 08:16] VITALS: BMI 23.7
[2023-11-08] MEDS: Tetracaine 0.5% 4 ML BTL OS (09:18)
[2023-11-08] MEDS: Povidone-Iodine Ophth 30 ML BTL (09:18)
[2023-11-08] MEDS: Duovisc Viscoelastic System EACH 1 EACH (09:27)
[2023-11-08] MEDS: Balanced Salt Soln.-PLUS 500 ML BAG OP (09:27)
[2023-11-08] MEDS: Lidocaine 1% Pres-Free 5 ML VIAL (09:28)
[2023-11-08 09:45] VITALS: BP 159/80; PULSE 48; RESP 16; TEMP 36.3; O2SAT 98
--- NOTE | 2023-11-08 09:46 | W.PM.OP ---
Date of service: 11/08/23 Time of Service: 09:46 Operative Note Operative Note DATE OF PROCEDURE: 11/08/23 PRE-OP DIAGNOSIS: Nuclear/cortical cataract, left eye POST-OP DIAGNOSIS: same PROCEDURE: Cataract extraction using phacoemulsification with intraocular lens implant, left eye SURGEON: Fernando Mendoza ANESTHESIA TYPE: Local By Surgeon and MAC Refer to Anesthesia Record PATHOLOGY: none sent COMPLICATIONS: None Patient was transported to: same day Patient's condition: stable Implants: Royer and Royer Tecnis Eyhance [id number] Indications: Progressive decreased vision due to cataract, left eye Procedure Description: CATARACT SURGERY OPERATIVE REPORT PREOPERATIVE DIAGNOSIS: 1. Nuclear/cortical cataract, left eye POSTOPERATIVE DIAGNOSIS: Same OPERATION: 1. Cataract extraction using phacoemulsification with posterior chamber intraocular lens implant, left eye. IOL: IOL Marketing Designer/Model: Royer & Royer Tecnis Eyhance DIB00 IOL Power: + 19.0 diopters IOL Serial Number: [id number] Optic Diameter: 6.0 mm Haptic/Overall Diameter: 13.0 mm PHACO INFO: VirajEducation Elements Vision System with OZil and Active Fluidics Cumulative Dispersed Energy (CDE): 6.01 seconds SURGEON: Fernando Mendoza MD, EVAN ANESTHESIA: Monitored [facility] (MAC), with local sub-tenon's anesthetic infiltration COMPLICATIONS: None SPECIMENS: None INDICATIONS FOR PROCEDURE: The patient is an 83-year-old male with history of diminished visual acuity in left eye secondary to the development of nuclear/cortical cataract. He has a history of myopia and reads without glasses. He would like to remain myopic status post cataract surgery. Postoperative refractive target is -2.50 diopters. See office notes for detailed information. PROCEDURE: The correct surgical eye was identified and marked as the left eye and the pupil was dilated in the preoperative area using mydriatics and cycloplegics. The dilated pupil size was 7.0 mm. The patient elected to proceed without oral sedation. The patient was brought to the operating room where cardiopulmonary monitoring was instituted and surgical time-out was performed, confirming the correct operative eye and IOL power. Topical anesthesia was administered and ophthalmic povidone-iodine 5% was instilled into the conjunctival fornices. The andressa-ocular area was prepped with Betadine 10% solution and draped in the usual sterile fashion for intraocular surgery, including an aperture drape. A Tegaderm transparent film dressing was cut in half and used to cover the lashes and lid margins. Care was taken to sequester the lashes and lid margins under the Tegaderm dressing. A lid speculum was placed between the lids of the operative eye and the Viraj LuxOR Revalia operating microscope was maneuvered into position. Jurgen scissors were then used to make a conjunctival buttonhole approximately 6mm posterior to the limbus in the inferonasal quadrant. Blunt dissection was carried out to expose bare sclera, and a blunt-tipped sub-tenon?s anesthesia cannula was introduced and passed posteriorly along the globe where non-preserved plain lidocaine was injected into posterior sub-Tenon?s space. A sideport knife was used to make a paracentesis port. Intraocular phenylephrine/lidocaine was injected into the anterior chamber.. The anterior chamber was filled with viscoelastic. A keratome knife was used to construct a 2-plane near-clear corneal tunnel extending 2.0mm into clear cornea. A flap was raised on the anterior capsule and capsulorhexis forceps were used to complete a continuous curvilinear capsulorhexis of 5.0 mm. Balanced salt solution was then used to perform cortical cleaving hydrodissection and nuclear hydrodelineation until the lens could be freely rotated within the capsular bag. The lens nucleus was then disassembled and removed within the capsular bag and iris plane using phacoemulsification. Residual cortical material was removed using the irrigation/aspiration handpiece. The posterior capsule was carefully polished to remove as much residual lens epithelial cells as safely possible. The capsular bag was then inflated and the anterior chamber deepened with viscoelastic. The lens implant described above was inserted into the capsular bag using the Royer and Royer Simplicity pre-loaded injector. A Kuglen hook was used to dial the IOL into position. Residual viscoelastic was then removed first from posterior to the IOL, then from the anterior chamber using the I/A handpiece. The lens implant was noted to center nicely within the capsular bag. The incisions were stromally hydrated, and the anterior chamber was reformed using BSS. Then 0.5cc of moxifloxacin 1.0mg/ml were injected into the capsular bag and anterior chamber. The incisions were checked with a Weck spear and found to be secure. Several drops of ophthalmic povidone-iodine 5% were then applied to the eye followed by two drops of Imprimis combination prednisolone/moxifloxacin/nepafenac solution. The drapes were removed and a clear plastic protective eye shield was placed over the eye. The patient was then returned to Same Day Surgery in stable condition.
--- NOTE | 2023-11-08 09:46 | W.PM.DSUDISC ---
Date of service: 11/08/23 Time of Service: 09:46 Discharge Plan Disposition Patient Disposition: Home Discharge Details Attending Provider: Fernando Mendoza Primary Care Provider: Jenny York Home Meds and New Rx's Prescriptions: No Action mecobalamin (vitamin B12) 1,000 mcg tablet,chewable 1,000 mcg PO DAILY cholecalciferol (vitamin D3) 50 mcg (2,000 unit) capsule 50 mcg PO DAILY calcium carbonate [Tums Freshers] 200 mg calcium (500 mg) tablet,chewable 200 mg PO TID Qty: 90 0RF amiodarone 200 mg tablet 200 mg PO DAILY Qty: 90 3RF meloxicam 7.5 mg tablet 7.5 mg PO HS memantine 5 mg tablet 5 mg PO .COMPLEX Qty: 120 3RF Rx Instructions: Week 1: 5 mg pm Week 2: 5 mg BID Week 3: 5 mg am, 10 mg pm Week 4+: !0 mg BID fluticasone propionate [Allergy Relief (fluticasone)] 50 mcg/actuation spray,suspension 2 spray intranasal DAILY PRN Rx Instructions: administer into each nostril Xarelto 20 mg tablet 20 mg PO HS Rx Instructions: must administer with evening meal metoprolol tartrate 25 mg tablet 12.5 mg PO DAILY PRN Dupixent Pen 300 mg/2 mL pen injector 300 mg subcut Q2W Prolia 60 mg/mL syringe 60 mg subcut [id number] Discharge Instructions Stand Alone Forms: DSU Post-Op CataractTisha (DSU) Discharge Orders Discharge Orders: Discharge Order (Routine); Ordered 11/08/23 Ordered By: Fernando Mendoza DS: Diagnosis Discharge Diagnosis (1) Cortical age-related cataract, left eye: Status: Resolved (2) Nuclear age-related cataract, left eye: Status: Resolved
--- NOTE | 2023-11-08 10:45 | W.ANESPOSTOP ---
Postoperative Evaluation Date, Time and Location Date Performed: 11/08/23 Time Performed: 09:46 Patient Location: Day Surgery Unit Vital Signs Most Recent Imported Vital Signs: Most Recent Vital Signs Temp Pulse Resp BP Pulse Ox 36.3 C L 48 L 16 159/80 H 98 11/08/23 09:45 11/08/23 09:45 11/08/23 09:45 11/08/23 09:45 11/08/23 09:45 Pain Score Most Recent Pain Score: Most Recent Pain Score Pain Level 0 11/08/23 09:45 Assessment Mental Status: Awake (Alert & Oriented to Patient Baseline) Airway and Respiratory Function: Patent airway with normal (patient baseline) respiratory exam Cardiovascular Function: Hemodynamically Stable Hydration Status: Adequately Hydrated Nausea & Vomiting: No Nausea or Vomiting Pain: Pt. Denies Any Pain Peripheral Nerve Block: Other (Local by Dr. Mendoza)
== END 2023-11-08 10:13 | disposition home or self-care (01) ==
LOC: SUR 07:31
PROVIDERS: PCP Family Medicine; Visit Provider Ophthalmology
PROC: (CPT 66984; principal; 2023-11-08 09:30)
DX: H25.012 Cortical age-related cataract, left eye (principal); I48.0 Paroxysmal atrial fibrillation
CPT/HCPCS: 66984; 00123; V2632; J2003

== ENCOUNTER 2023-11-22 07:31 | Day surgery (SDC) | payer MEDICARE, SELFPAY ==
[2023-11-22 07:35] VITALS: BP 153/75; PULSE 46; RESP 20; TEMP 36.7; O2SAT 96
--- NOTE | 2023-11-22 08:18 | W.ANESPRE ---
General Info Date of Service Date Performed: 11/22/23 Height: 6 ft Weight: 85.6 kg Body Mass Index (BMI): 25.6 Surgical Procedure: Operation Date: 11/22/23 09:10 Proposed Procedure Side Surgeon p Cataract Extraction with IOL Implant Right Fernando Mendoza MD Meds Allergies and Home Medications Allergies Allergy/AdvReac Type Severity Reaction Status Date / Time cephalexin [Cephalexin] AdvReac Intermediate Diarrhea Verified 11/22/23 07:58 Home Medication Medication Instructions Recorded denosumab 60 mg/mL subcutaneous 60 mg subcut [id number] 02/26/20 syringe (Prolia) mecobalamin (vitamin B12) 1,000 1,000 mcg PO DAILY 06/07/20 mcg chewable tablet fluticasone propionate 50 2 spray intranasal DAILY PRN 04/06/21 mcg/actuation nasal spray,suspension (Allergy Relief (fluticasone)) rivaroxaban 20 mg tablet (Xarelto) 20 mg PO HS 04/06/21 cholecalciferol (vitamin D3) 50 50 mcg PO DAILY 07/17/21 mcg (2,000 unit) capsule metoprolol tartrate 25 mg tablet 12.5 mg PO DAILY PRN 07/19/21 amiodarone 200 mg tablet 200 mg PO DAILY #90 tabs 08/08/21 calcium carbonate (Tums Freshers) 200 mg PO TID #90 tabs 08/08/21 dupilumab 300 mg/2 mL subcutaneous 300 mg subcut Q2W 01/17/23 pen injector (Dupixent) meloxicam 7.5 mg tablet 7.5 mg PO HS 03/04/23 memantine 5 mg tablet 5 mg PO .COMPLEX #120 tabs 09/12/23 Current Visit Medications: Current Medications Generic Name Dose Route Start Last Admin Trade Name Freq PRN Reason Stop Dose Admin Acetaminophen 1,000 mg 11/22/23 06:00 Acetaminophen 500 Mg Tab PO 12/22/23 05:59 Q4H PRN PRN Balanced Salt Solution 500 ml 11/22/23 06:00 Balanced Salt Soln.-Plus 500 Ml Bag OP 12/22/23 05:59 DIRECTED [facility] Miscellaneous Medication 0 ml 11/22/23 06:00 Prednisolone 1%, Moxifloxacin 0.5%, Bromfenac 0.09% 5ml Btl OD 12/22/23 05:59 DIRECTED [facility] Miscellaneous Medication 0 ml 11/22/23 06:00 11/22/23 08:17 Tropicam./Phenyleph. (1/2.5%) 10 Ml Btl OD 12/22/23 05:59 1 drp DIRECTED [facility] Administration Tetracaine HCl 0 ml 11/22/23 06:00 Tetracaine 0.5% 4 Ml Btl OD 12/22/23 05:59 DIRECTED [facility] PFSH Active Problems Active Problems: Problem Status Onset Code Posterior subcapsular age-related cataract, right eye H25.041 Cortical age-related cataract, right eye H25.011 Nuclear age-related cataract, right eye H25.11 Cortical age-related cataract, left eye H25.012 Nuclear age-related cataract, left eye H25.12 COVID U07.1 Lumbar facet arthropathy M47.816 Iliotibial band syndrome, right leg M76.31 Arthritis of right hip M16.11 Right hip flexor tightness M24.551 Periodic limb movement disorder G47.61 Advance care planning Z71.89 Leg weakness, bilateral R29.898 Impaired instrumental activities of daily living Z78.9 Right leg weakness R29.898 Babinski reflex R29.2 Neurodegenerative disorder G31.9 Dysphagia R13.10 All medications reviewed On amiodarone therapy Z79.899 Atrial flutter I48.92 PVC (premature ventricular contraction) I49.3 Atrial dilatation, bilateral I51.7 Lightheadedness R42 Clamminess R23.1 Movement disorder G25.9 Fracture of C6 vertebra, closed S12.500A Blunt head trauma S09.8XXA Paroxysmal atrial fibrillation I48.0 Chronic anticoagulation Z79.01 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, R35.1 Walker as ambulation aid Z99.89 Short-term memory loss R41.3 Executive function deficit R41.844 Health care proxy on file DNI (do not intubate) Z78.9 DNR (do not resuscitate) Z66 POLST (Physician Orders for Life-Sustaining Treatment) Z78.9 History of carpal tunnel surgery of left wrist Z98.890 Goals of care, counseling/discussion Z71.89 Hypophonia R49.8 Palliative care patient Z51.5 Fatigue R53.83 Cubital tunnel syndrome, bilateral 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 denies Atrial fibrillation newly recognized February 2021 Travel advice encounter around COVID-19, international travel Onychomycosis of toenail Vision changes Nocturia Chronic rhinitis Polyneuropathy Actinic keratosis Candidal intertrigo Gait abnormality Mild memory disturbance Osteoporosis Surgical History Surgical History Hx of appendectomy Tobacco Smoking/Tobacco Use Status: Never Alcohol Alcohol Intake: current Alcohol intake frequency: a few times a month Alcohol type: wine Substance Use Substance use: Never Substance use type: does not use Vital Signs and Lab Results Vital Signs Most Recent Vital Signs in EMR: Most Recent Vital Signs Temp Pulse Resp BP Pulse Ox 36.7 C 46 L 20 153/75 H 96 11/22/23 07:35 11/22/23 07:35 11/22/23 07:35 11/22/23 07:35 11/22/23 07:35 Lab Results Blood Type / Crossmatch: No Data to Display Complete Blood Count: No Data to Display Complete Metabolic Panel: No Data to Display Liver Function Panel: No Data to Display Coagulation Panel: No Data to Display Cardiac Panel: No Data to Display Arterial Blood Gas: No Data to Display Venous Blood Gas: No Data to Display Pancreas Panel: No Data to Display Thyroid Panel: No Data to Display Infectious Disease: No Data to Display Blood Cultures: No Data to Display Toxicology Panel: No Data to Display Imaging and Studies Imaging and Studies Study information below may be from another EMR and interpreted by another provider. Please see original notes in EMR for more complete details. EKG Summary: EKG PATIENT NAME: Aj Chamberlain UNIT #: [id number] ORDERING PROVIDER: Jefry Pierson M.D. PRIMARY CARE PROVIDER: JENNY COLEMAN MD DATE/TIME OF SERVICE: 07/24/23 1120 : 1940 PERFORMING LOCATION: ER APPROVED REPORT Exam: Resting ECG Reason for Exam: syncope Patient Location: E HR:54 bpm ECG Measurements Heart Rate 54 AXIS MD 179 P 29 QRSd 105 QRS -1 QT 436 T89 QTc 414 Conclusion Sinus bradycardia...rate< 60 Nonspecific T abnormalities, lateral leads...T <-0.10mV, I aVL V5 V6 <Electronically signed by JEFRY PIERSON MD in OV> E-Sign Date: 07/24/23 E-Sign Time: 1134 ADDENDUM APPROVED REPORT Exam: Resting ECG Reason for Exam: syncope Patient Location: E HR:54 bpm ECG Measurements Heart Rate 54 AXIS MD 179 P 29 QRSd 105 QRS -1 QT 436 T89 QTc 414 Conclusion Sinus bradycardia...rate< 60 Nonspecific T abnormalities, lateral leads...T <-0.10mV, I aVL V5 V6 I have reviewed and I agree with the emergency room physician's ECG interpretation. Electronically signed by: <Electronically signed by Priscilla Oshea M.D. in OV> 07/25/23 0901 Cosigned by: Echocardiogram Summary: Patient Name: Aj Chamberlain Unit #: [id number] Loc: Ordering Provider: Jenny Coleman M.D. Status: [facility] Primary Care Provider: Jenny Coleman M.D. Date of Exam: 03/29/21 Sex: M Admission Date: 03/29/21 : 1940 Age: 80 APPROVED REPORT EXAM: Comprehensive 2D, Doppler, and color-flow Echocardiogram Patient Location: Out-Patient Junior Technical Writer: Grace Gregory RDCS (AE) Indications: Atrial Fibrillation Other Information Study Quality: Adequate Conclusion Normal left ventricular wall thickness and chamber size. Estimated ejection fraction is 55 to 60%. There are no segmental wall motion abnormalities Normal right ventricular size and systolic function Both atria are mildly dilated The aortic valve is trileaflet with trace regurgitation Mildly thickened mitral leaflets with mild regurgitation Normal tricuspid valve with trace regurgitation. Normal estimated right ventricular systolic pressure, 23 mmHg Dilated ascending aorta measuring 4 cm Wall motion Left Ventricle The left ventricle is normal size. The left ventricular systolic function is normal. The left ventricular ejection fraction is within the normal range. There is normal left ventricular wall thickness. There is normal LV segmental wall motion. There is no ventricular septal defect visualized. LVEF is 58%. Right Ventricle The right ventricle is normal size. The right ventricular systolic function is normal. The RVSP is 23.2 mmHg. Atria Left atrium is mildly dilated. Right atrium is mildly dilated. The interatrial septum is intact with no evidence for an atrial septal defect. Aortic Valve The aortic valve is normal in structure. There is no aortic valvular stenosis. Trace aortic regurgitation. Mitral Valve Mitral valve leaflets are mildly thickened. No evidence of mitral valve stenosis. Mild mitral regurgitation. Tricuspid Valve The tricuspid valve is normal in structure. There is no tricuspid valve stenosis. Trace tricuspid regurgitation. Pulmonic Valve The pulmonary valve is normal in structure. There is no pulmonic valvular stenosis. There is no pulmonic valvular regurgitation. Great Vessels The aortic root is normal in size. The ascending aorta is moderately dilated.4.0 cm Aortic arch is normal in caliber. IVC is normal in size and collapses >50% with inspiration. IVC is normal in size and collapses >50% with inspiration. Pericardium There is no pericardial effusion. 2D Dimensions IVSD d PLAX 1.04 cm M: 0.6-1.2LV Vol A2C d MOD 149.0 mL LVPW d PLAX 1.04 cm M: 0.6 - 1.2LV Vol A4C d MOD 154.0 mL LVID d PLAX 4.93 cm M: 4.2 - 5.8LA vol/ BSA A2C s A-L49.9 mL/m2 LVDs 3.40 cm M: 2.5 - 4.0LA vol/ BSA A4C s A-L28.8 mL/m2 Ao Root d 3.67 cm M: 3.1 - 3.7LA Vol/ BSA Biplane s A-L 39.6 mL/m2 RA Area A4C19.56 cm2LA Area A4C s MOD 19.80 cm2 RA Vol/ BSA A4C s A-L 30.9 mL/m2LA Area A2C s MOD 27.21 cm2 Ao Asc Diam d 4.08 cm M: 2.6 - 3.4LV EF A4C MOD 59.2 % LV EF Teichholz 58.1 %LV EF A2C MOD 58.9 % LVEF (Gibson's)57.91 % M: 52 - 72LV EF Biplane MOD 57.9 % LV Yumghg479.13 mL M: 62 - 057XP56.80 mL LV Volume Index57.85 mL/m2 M: 34 - 74SV Index44.55 mL/m2 LV Vol Biplane MOD 153.3 mL FS30.70 % M-Mode TAPSE 2.92 cm (M/F) >1.7 LV Diastology MV E' medial0.073 (>0.07 m/s)E/A Ratio 0.9 LV E/e MED10.20 (<14)MV E Vmax 0.75 (0.4-1.3 m/s) MV E' lateral0.088 (>0.1 m/s)MV A Vmax 0.80 (0.4-1.3 m/s) LV E/e LAT8.50 (<14)MV E/A Ratio 0.92 MV E/E' medial 10.22 MV E/E' lateral8.52 Aortic Valve LVOT Area3.90 cm2AoV Area Vmax2.74 cm2 LVOT Vmax 0.89 m/sAoV Area/ BSA (Vmax)1.38 cm2/m2 LVOT Mean Ba.0.70 m/sAVA Mean Ba.2.50 cm2 LVOT Peak Grad 3.2 mmHgAVA Mean Ba. Index1.25 cm2/m2 LVOT Mean Grad 2.1 mmHgAR DT 2151 msec LVOT VTI0.217 mAR PHT 624 msec LVOT Diam s 2.20 cm AoV Vmax1.27 m/s Velocity Ratio 0.70 AoV Mean Ba.1.09 m/s AoV Peak Grad6.5 mmHg LVOT SV 84.63 mL AoV Mean Grad4.8 mmHg AoV VTI0.339 m AoV Area VTI2.50 cm2 AoV Area/ BSA (VTI)1.25 cm/m2 Mitral Valve MV DT 258 (160-240 msec)MR Vmax 5.23 m/s MV PHT75 msecMR VTI 1.712 m MV Area PHT 2.95 cm2MR Peak Grad 109.5 mmHg MV VTI 0.352 mMR Mean Grad 80.2 mmHg MV VTI Annulus 0.372 mMR PISA Radius 0.44 cm MV Area VTI 2.55 (4.0-6.0 cm2)MR EROA 0.08 cm2 MR Aliasing Velocity 0.35 m/s MR PISA 1.23 cm2 Pulmonary Valve PV Vmax 0.91 (0.5-1.5 m/s)RVOT Peak Gr.1.74 mmHg PV Peak Grad 3.3 mmHgRVOT Mean Gr.0.85 mmHg PV Mean Grad 1.7 mmHgRVOT VTI0.136 m PV VTI 0.199 mRVOT Vmax 0.66 m/s Tricuspid Valve TR Peak Grad 20.2 mmHgTR Vmax 2.25 m/s RA Pressure 3.00 mmHg RVSP (TR) 23.2 mmHg Ordered By: Jenny Coleman M.D. CC: Dictated By: Priscilla Oshea M.D. 03/29/21 1324 <Electronically signed by Priscilla Oshea M.D. in OV> 03/30/21 8378 Transcribed By: Priscilla Oshea MD This is privileged, confidential information intended only for the provider named. Any use or distribution by any person other than this provider is strictly prohibited. If you receive this report in error, please notify us immediately at [phone] and return the original report to us at the address above. Thank-you. Pulmonary Function Summary: Pulmonary Function Test PATIENT NAME: Aj Chamberlain UNIT #: [id number] ADMITTING PROVIDER: Paula Meneses M.D. PRIMARY CARE PROVIDER: JENNY COLEMAN MD DATE OF ADMIT: 11/13/21 : 1940 Date of service: 11/13/21 Time of Service: 15:06 Pulmonary Function Test Result Requesting Provider Orestes Godinez Indications: On amiodarone therapy - screening Interpretation Spirometry: There is no airflow limitation. There is no significant bronchodilator response. Lung Volumes: There are normal lung volumes Diffusion Capacity: There is a normal diffusion Airway Pressure: Normal airways resistance. Impression Normal PFT's Note: No prior PFT in system to compare Clinical Correlation therefore is recommended. cc: Dictated by: PAULA MENESES MD Dictated: 11/14/21 Time: 111 <Electronically signed by Paula Meneses M.D.> Date: 11/14/211117 Date: Date: Transcribed Date: 11/14/21 Transcribed Time: 1115 By: MARTIN Anesthesia Assessment and Plan Anesthesia History Personal History: No History of Anesthesia Complications Family History: No Family History of Anesthesia Complications Exercise Tolerance Exercise Tolerance: Metabolic Equivalents>4 Pertinent Negatives Pertinent Negatives: No Major Cardiovascular Symptoms or Complaints and No Major Pulmonary Symptoms or Complaints Cardiac & Pulmonary Exam Cardiac Exam: Normal S1/S2 Heart Sounds Pulmonary Exam: Clear Bilateral Breath Sounds Implantable Cardiac Device Does patient have a Pacemaker or an ICD?: No Airway Exam Known Difficult Airway: No Mallampati Class: 2 Mouth Opening: Normal (> 3cm) Thyromental Distance: Greater than 3 cm Neck Range of Motion: Full ROM Neck Circumference: Normal Teeth Condition: Normal Dentition ASA Classification ASA Score: ASA 3 Emergency Case?: No NPO Status NPO Status: NPO Clears >2 hours, Solids >8 hours Anesthesia Plan Resuscitation Status: Full Code Anesthesia Technique: MAC Anesthesia Airway Planned: Natural Airway Monitors Used: Standard Monitors
[2023-11-22 08:21] VITALS: BMI 25.6
[2023-11-22] MEDS: Duovisc Viscoelastic System EACH 1 EACH (09:05)
[2023-11-22] MEDS: Lidocaine 1% Pres-Free 5 ML VIAL (09:06)
[2023-11-22] MEDS: Povidone-Iodine Ophth 30 ML BTL (09:07)
[2023-11-22] MEDS: Balanced Salt Soln.-PLUS 500 ML BAG OP (09:08)
[2023-11-22] MEDS: Tetracaine 0.5% 4 ML BTL OD (09:09)
--- NOTE | 2023-11-22 09:34 | ROE_ITS ---
Date of service: 11/22/23 Time of Service: 09:35 Operative Note Operative Note DATE OF PROCEDURE: 11/22/23 PRE-OP DIAGNOSIS: Nuclear/cortical/posterior subcapsular cataract, right eye POST-OP DIAGNOSIS: same PROCEDURE: Cataract extraction using phacoemulsification with intraocular lens implant, right eye SURGEON: Fernando Mendoza ANESTHESIA TYPE: Local By Surgeon and MAC Refer to Anesthesia Record ESTIMATED BLOOD LOSS: 0 PATHOLOGY: none sent COMPLICATIONS: None Patient was transported to: same day Patient's condition: stable Implants: Royer & Royer Tecnis Eyhance [id number] Indications: Progressive visual loss due to cataract, right eye Procedure Description: CATARACT SURGERY OPERATIVE REPORT PREOPERATIVE DIAGNOSIS: 1. Nuclear/cortical/posterior subcapsular cataract, right eye POSTOPERATIVE DIAGNOSIS: Same OPERATION: 1. Cataract extraction using phacoemulsification with posterior chamber intraocular lens implant, right eye. IOL: IOL Fish Filleter/Model: Royer & Royer Tecnis Eyhance DIB00 IOL Power: + 18.0 diopters IOL Serial Number: [id number] Optic Diameter: 6.0mm Haptic/Overall Diameter: 13.0mm PHACO INFO: Viraj [employer] Solutionsurion Vision System with OZil and Active Fluidics Cumulative Dispersed Energy (CDE): 10.00 seconds SURGEON: Fernando Mendoza MD, EVAN ANESTHESIA: Monitored Anesthesia Care (MAC), with local sub-tenon's anesthetic infiltration COMPLICATIONS: None SPECIMENS: None INDICATIONS FOR PROCEDURE: The patient is an 83-year-old male with history of diminished visual acuity in both eyes secondary to the development of bilateral cataract. He has already undergone cataract surgery in the left eye and is doing well postoperatively. He now presents for cataract surgery in the right eye. Postoperative refractive target is -2.50 diopters, as he desires uncorrected near vision postoperatively. See office notes for detailed information. PROCEDURE: The correct surgical eye was identified and marked as the right eye and the pupil was dilated in the preoperative area using mydriatics and cycloplegics. The dilated pupil size was 6.5 mm. The patient elected to proceed without oral sedation. The patient was brought to the operating room where cardiopulmonary monitoring was instituted and surgical time-out was performed, confirming the correct operative eye and IOL power. Topical anesthesia was administered and ophthalmic povidone-iodine 5% was instilled into the conjunctival fornices. The andressa-ocular area was prepped with Betadine 10% solution and draped in the usual sterile fashion for intraocular surgery, including an aperture drape. A Tegaderm transparent film dressing was cut in half and used to cover the lashes and lid margins. Care was taken to sequester the lashes and lid margins under the Tegaderm dressing. A lid speculum was placed between the lids of the operative eye and the Viraj LuxOR Revalia operating microscope was maneuvered into position. Jurgen scissors were then used to make a conjunctival buttonhole approximately 6mm posterior to the limbus in the inferonasal quadrant. Blunt dissection was carried out to expose bare sclera, and a blunt-tipped sub-tenon?s anesthesia cannula was introduced and passed posteriorly along the globe where non- preserved plain lidocaine was injected into posterior sub-Tenon?s space. A sideport knife was used to make a paracentesis port. Intraocular phenylephrine/lidocaine was injected into the anterior chamber. The anterior chamber was filled with viscoelastic. A keratome knife was used to construct a 2-plane clear corneal tunnel extending 2.0mm into clear cornea. A flap was raised on the anterior capsule and capsulorhexis forceps were used to complete a continuous curvilinear capsulorhexis of 5.0 mm. Balanced salt solution was then used to perform cortical cleaving hydrodissection and nuclear hydrodelineation until the lens could be freely rotated within the capsular bag. The lens nucleus was then disassembled and removed within the capsular bag and iris plane using phacoemulsification. Residual cortical material was removed using the I/A handpiece. The posterior capsule was carefully polished to remove as much residual lens epithelial cells as safely possible. The capsular bag was then inflated and the anterior chamber deepened with cohesive viscoelastic. The lens implant described above was inserted into the capsular bag using the Royer and Cyndi Simplicity pre-richelle ded injector. A Kuglen hook was used to dial the IOL into position. Residual viscoelastic was then removed first from posterior to the IOL, then from the anterior chamber using the I/A handpiece. The lens implant was noted to center nicely within the capsular bag. The incisions were stromally hydrated, and the anterior chamber was reformed using BSS. Then 0.5cc of moxifloxacin 1.0mg/ml were injected into the capsular bag and anterior chamber. The incisions were checked with a Weck spear and found to be secure. Several drops of ophthalmic povidone-iodine 5% were then applied to the eye followed by two drops ocombination steroid/NSAID/antibiotic solution. The drapes were removed and a clear plastic protective eye shield was placed over the eye. The patient was then returned to Same Day Surgery in stable condition.
--- NOTE | 2023-11-22 09:34 | W.PM.DSUDISC ---
Date of service: 11/22/23 Time of Service: 09:34 Discharge Plan Disposition Patient Disposition: Home Discharge Details Attending Provider: Fernando Mendoza Primary Care Provider: Jenny York Home Meds and New Rx's Prescriptions: No Action mecobalamin (vitamin B12) 1,000 mcg tablet,chewable 1,000 mcg PO DAILY cholecalciferol (vitamin D3) 50 mcg (2,000 unit) capsule 50 mcg PO DAILY calcium carbonate [Tums Freshers] 200 mg calcium (500 mg) tablet,chewable 200 mg PO TID Qty: 90 0RF amiodarone 200 mg tablet 200 mg PO DAILY Qty: 90 3RF meloxicam 7.5 mg tablet 7.5 mg PO HS memantine 5 mg tablet 5 mg PO .COMPLEX Qty: 120 3RF Rx Instructions: Week 1: 5 mg pm Week 2: 5 mg BID Week 3: 5 mg am, 10 mg pm Week 4+: !0 mg BID fluticasone propionate [Allergy Relief (fluticasone)] 50 mcg/actuation spray,suspension 2 spray intranasal DAILY PRN Rx Instructions: administer into each nostril Xarelto 20 mg tablet 20 mg PO HS Rx Instructions: must administer with evening meal metoprolol tartrate 25 mg tablet 12.5 mg PO DAILY PRN Dupixent Pen 300 mg/2 mL pen injector 300 mg subcut Q2W Prolia 60 mg/mL syringe 60 mg subcut [id number] Discharge Instructions Stand Alone Forms: DSU Post-Op CataractTisha (DSU) Discharge Orders Discharge Orders: Discharge Order (Routine); Ordered 11/22/23 Ordered By: Fernando Mendoza DS: Diagnosis Discharge Diagnosis (1) Posterior subcapsular age-related cataract, right eye: Status: Resolved (2) Cortical age-related cataract, right eye: Status: Resolved (3) Nuclear age-related cataract, right eye: Status: Resolved
[2023-11-22 09:35] VITALS: BP 154/72; PULSE 45; RESP 18; TEMP 36.6; O2SAT 97
--- NOTE | 2023-11-22 09:53 | W.ANESPOSTOP ---
Postoperative Evaluation Date, Time and Location Date Performed: 11/22/23 Time Performed: 09:50 Patient Location: Day Surgery Unit Vital Signs Most Recent Imported Vital Signs: Most Recent Vital Signs Temp Pulse Resp BP Pulse Ox 36.6 C 45 L 18 154/72 H 97 11/22/23 09:35 11/22/23 09:35 11/22/23 09:35 11/22/23 09:35 11/22/23 09:35 Pain Score Most Recent Pain Score: Most Recent Pain Score Pain Level 0 11/22/23 09:35 Assessment Mental Status: Awake (Alert & Oriented to Patient Baseline) Airway and Respiratory Function: Patent airway with normal (patient baseline) respiratory exam Cardiovascular Function: Hemodynamically Stable Hydration Status: Adequately Hydrated Nausea & Vomiting: No Nausea or Vomiting Pain: Pt. Denies Any Pain Peripheral Nerve Block: Patient did not receive a nerve block
== END 2023-11-22 09:58 | disposition home or self-care (01) ==
LOC: SUR 07:31
PROVIDERS: PCP Family Medicine; Visit Provider Ophthalmology
PROC: (CPT 66984; principal; 2023-11-22 09:00)
DX: H25.041 Posterior subcapsular polar age-related cataract, right eye (principal); H25.011 Cortical age-related cataract, right eye; H25.11 Age-related nuclear cataract, right eye
CPT/HCPCS: 66984; 00123; V2632; J2003

== ENCOUNTER → 2023-12-17 08:42 | Outpatient (BNVA) | payer MEDICARE, SELFPAY | PROVIDERS: PCP Family Medicine; Visit Provider Nurse Practitioner Adult Health | DX: G31.9 Degenerative disease of nervous system, unspecified (principal); R41.89 Other symptoms and signs involving cognitive functions and awareness | CPT/HCPCS: 99215; G2212 ==

== ENCOUNTER 2024-03-31 01:40 | Outpatient (RCR) | payer MEDICARE, SELFPAY ==
[2024-03-31] MEDS: Denosumab 60 MG/ML SYR SC (12:07)
== END 2024-04-09 23:59 | disposition home or self-care (01) ==
LOC: INF 01:40
PROVIDERS: PCP Family Medicine; Visit Provider Family Medicine
DX: M81.0 Age-related osteoporosis without current pathological fracture (principal)
CPT/HCPCS: 96372; J0897

== ENCOUNTER → 2024-06-16 15:05 | Outpatient (BNVA) | payer MEDICARE, SELFPAY | PROVIDERS: PCP Family Medicine; Visit Provider Nurse Practitioner Adult Health | DX: G31.9 Degenerative disease of nervous system, unspecified (principal) | CPT/HCPCS: 99215; G2212 ==

== ENCOUNTER 2024-07-21 08:17 | Outpatient (CLI) | payer MEDICARE, SELFPAY ==
--- NOTE | 2024-07-21 08:15 | RT.EKG_ITS ---
APPROVED REPORT Exam: Resting ECG Reason for Exam: afib Patient Location: O HR:62 bpm ECG Measurements Heart Rate 62 AXIS SC 173 P 62 QRSd 112 QRS -21 QT 466 T 14 QTc 474 Conclusion Sinus rhythm...normal P axis, V-rate 50- 99 Ventricular bigeminy...bigeminy string>4 w/ V complexes Borderline intraventricular conduction delay...QRSd >112mS
== END 2024-07-21 08:18 | disposition home or self-care (01) ==
LOC: DI.CARD 08:21
PROVIDERS: PCP Family Medicine; Visit Provider Internal Medicine Cardiovascular Disease
DX: I49.5 Sick sinus syndrome (principal); I48.0 Paroxysmal atrial fibrillation; I49.3 Ventricular premature depolarization; Z79.899 Other long term (current) drug therapy
CPT/HCPCS: 93010

== ENCOUNTER → 2024-07-21 14:00 | Outpatient (BNVA) | payer MEDICARE, SELFPAY | PROVIDERS: PCP Family Medicine; Referring Provider Family Medicine; Visit Provider Internal Medicine Cardiovascular Disease | DX: R40.4 Transient alteration of awareness (principal); I48.92 Unspecified atrial flutter | CPT/HCPCS: 93005; 99214 ==

== ENCOUNTER → 2024-08-27 12:42 | Outpatient (BNVA) | payer MEDICARE, SELFPAY | PROVIDERS: PCP Family Medicine; Referring Provider Family Medicine; Visit Provider Nurse Practitioner Adult Health | DX: R40.4 Transient alteration of awareness (principal); G31.9 Degenerative disease of nervous system, unspecified | CPT/HCPCS: 99214 ==

== ENCOUNTER 2024-09-25 08:17 | Outpatient (REF) | payer MEDICARE, SELFPAY ==
[2024-09-25 10:15] LABS: Anion Gap 8.2 mmol/L (3-11); BUN 25 mg/dL (7-18); CO2 28.8 mmol/L (21.0-32.0); Calcium 8.5 mg/dL (8.5-10.1); Chloride 108 mmol/L (98-107); Estimated GFR 74.21 (mL/min/1.73m2); Glucose 94 mg/dL (74-106); Potassium 4.1 mmol/L (3.5-5.1); Sodium 145 mmol/L (136-145)
== END 2024-09-25 08:18 | disposition home or self-care (01) ==
LOC: LBN 08:17
PROVIDERS: PCP Family Medicine; Visit Provider Internal Medicine Rheumatology
DX: M81.0 Age-related osteoporosis without current pathological fracture (principal)
CPT/HCPCS: 80048

== ENCOUNTER 2024-10-20 01:50 | Outpatient (CLI) | payer MEDICARE, SELFPAY ==
--- NOTE | 2024-10-20 12:15 | DI.RAD_ITS ---
Exam(s) XR FOOT RT COMPLETE EXAM: XR FOOT RT COMPLETE CLINICAL HISTORY: Right foot pain,m79.671. TECHNIQUE: 2D digital imaging was performed. COMPARISON: No exams were available for comparison FINDINGS: 3 views No evidence of acute fracture or diastasis of the Lisfranc joint. No pes planus. There are mild deg enerative changes in the great toe metatarsophalangeal joint and mild hallux valgus. Mild degenerati ve changes in the 1st and 2nd tarsometatarsal joints. Posteriorly there is a small enthesophyte on the posterior calcaneus Achilles insertion site as well as a small calcification in the distal most Achilles tendon. There is also faint calcification in th e plantar fascia adjacent to the inferior calcaneus. Correlation with any clinical signs of plantar fasciitis recommended. IMPRESSION: As above DATA REPOSITORY: RADIATION DOSE DELIVERED:
== END 2024-10-20 02:10 ==
LOC: DI 01:50
PROVIDERS: PCP Family Medicine; Visit Provider Podiatrist
DX: M79.671 Pain in right foot (principal)
CPT/HCPCS: 96365; 73630; J3489

== ENCOUNTER 2024-10-20 02:14 | Outpatient (RCR) | payer MEDICARE, SELFPAY ==
[2024-10-20] MEDS: Normal Saline Flush 10 ML SYR IVP (11:10)
[2024-10-20] MEDS: ZOLEDRONIC ACID/MANNITOL/WATER 5 MG/100 ML BTL 300 MG IVPB (11:10)
== END 2024-11-07 23:59 | disposition home or self-care (01) ==
LOC: INF 02:14
PROVIDERS: PCP Family Medicine; Visit Provider Family Medicine
DX: M81.0 Age-related osteoporosis without current pathological fracture (principal)
CPT/HCPCS: 96365; 99214; J3489